=== PATIENT | female | born 1990 | race African-American/Black ===

== ENCOUNTER 2016-04-14 20:17 | Outpatient (CLI) | payer MEDICAID ==
[2016-04-14 21:01] LABS: APPEARANCE,URINE SLIGHTLY-CLOUDY; BILIRUBIN,URINE NEGATIVE (NEGATIVE); GLUCOSE, URINE NEGATIVE (NEGATIVE); KETONES,URINE TRACE mg/dL (NEGATIVE); LEUKOCYTE ESTERASE,URINE SMALL (NEGATIVE); NITRITE,URINE NEGATIVE (NEGATIVE); PROTEIN,URINE 30 mg/dL (NEGATIVE); URINE SPECIFIC GRAVITY 1.017; UROBILINOGEN,URINE NEGATIVE mg/dL (<2.0)
[2016-04-14] MEDS ORDERED: HYDROXYZINE PAMOATE 50 MG CAPSULE PO ONE (21:22)
[2016-04-14] MEDS ORDERED: RINGERS SOLUTION,LACTATED 1,000 ML IV PRN (21:23)
[2016-04-14] MEDS ORDERED: HYDROXYZINE PAMOATE 50 MG CAPSULE ONE (21:43)
[2016-04-14 21:52] LABS: URINE BARBITURATES SCREEN NEGATIVE; URINE METHADONE SCREEN NEGATIVE; URINE PHENCYCLIDINE SCREEN NEGATIVE
--- NOTE | 2016-04-14 22:42 | Non Stress Test Report ---
Non Stress Test Datetime Report Generated by CPN: 04/14/2016 22:41 DEMOGRAPHIC Test Number: 1 EGA NST: 35.6 INDICATION Indication for Study: Ordered by Provider MONITORING Monitor Explained: Monitor Explained; Test Explained; Patient Verbalized Understanding Time on Monitor: 04/14/2016 20:34 Time off Monitor: 04/14/2016 22:18 NST Duration: 104 NST INTERVENTIONS NST Interventions: PO Hydration; IV Fluids; Reposition Patient Physician Notified NST: Dr. Zayas BABY A: [id number] BABY A Movement : Present Contraction Frequency : Irregular FHR Baseline : 120 Accelerations : 15X15 Decelerations : None Variability : Moderate 6-25bpm NST Review: Meets Criteria for Reactive NST NST Review and Verified By : RODRIGUEZ Simental Results: Reactive NST REPORT Report Trigger: Send Report
[2016-04-15 00:19] LABS: CHLAM PCR NOT DETECTED (NOT DETECT)
--- NOTE | 2016-04-15 04:47 | L&D Admission Assessment ---
LD ADM ASMT Datetime Report Generated by CPN: 04/15/2016 04:45 PATIENT ASSESSMENT Assessment Type: Admission Assessment (04/14/2016 20:41:Susan Vitrano, RN) WEIGHT Weight (lb): 191 (04/14/2016 21:11:QS system process) Weight (kg): 86.8 (04/14/2016 21:11:QS system process) PAIN Pain Scale: 2 (04/14/2016 22:14:Susan Vitrano, RN) Pain Scale: 3 (04/14/2016 20:41:Susan Vitrano, RN) Pain Presence: Constant (04/14/2016 22:14:Susan Vitrano, RN) Pain Presence: Intermittent (04/14/2016 20:41:Susan Vitrano, RN) Pain Type: Pressure (04/14/2016 22:14:Susan Vitrano, RN) Pain Type: Contraction (04/14/2016 20:41:Susan Vitrano, RN) Pain Location: Back (04/14/2016 22:14:Susan Vitrano, RN) Pain Location: Back (04/14/2016 20:41:Susan Vitrano, RN) Pain Related to Contraction: Yes (04/14/2016 20:41:Susan Vitrano, RN) Pain Comments: Pt states contractions do not hurt, now is feeling only pressure in back (04/14/2016 22:14:Susan Vitrano, RN) CONTRACTIONS Frequency (min): None (04/14/2016 22:18:Susan Vitrano, RN) Frequency (min): Irritability (04/14/2016 22:00:Susan Vitrano, RN) Frequency (min): Irregular (04/14/2016 21:30:Susan Vitrano, RN) Frequency (min): Irregular (04/14/2016 21:00:Susan Vitrano, RN) Frequency (min): q 2-7 (04/14/2016 20:41:Susan Vitrano, RN) Duration (sec): 120-160 (04/14/2016 21:30:Susan Vitrano, RN) Duration (sec): 50-150 (04/14/2016 21:00:Susan Vitrano, RN) Quality: Mild (04/14/2016 22:00:Susan Vitrano, RN) Quality: Mild/Moderate (04/14/2016 21:30:Susan Vitrano, RN) Quality: Mild/Moderate (04/14/2016 21:00:Susan Vitrano, RN) Pattern: Normal: <= 5 Contractions in 10 Minutes (04/14/2016 22:00:Susan Vitrano, RN) Pattern: Normal: <= 5 Contractions in 10 Minutes (04/14/2016 21:30:Susan Vitrano, RN) Pattern: Normal: <= 5 Contractions in 10 Minutes (04/14/2016 21:00:Susan Vitrano, RN) Resting Tone [place]: Relaxed (04/14/2016 22:18:Susan Vitrano, RN) Resting Tone [place]: Relaxed (04/14/2016 22:00:Susan Vitrano, RN) Resting Tone [place]: Relaxed (04/14/2016 21:30:Susan Vitrano, RN) Resting Tone [place]: Relaxed (04/14/2016 21:00:Susan Vitrano, RN) Contraction Comments: Irritability (04/14/2016 22:00:Susan Vitrano, RN) VAGINAL EXAM Dilatation (cm): 1.0 (04/14/2016 20:36:Susan Vitrano, RN) Effacement (%): 50 (04/14/2016 20:36:Susan Vitrano, RN) Station: -3 (04/14/2016 20:36:Susan Vitrano, RN) Membranes Status: Intact (04/14/2016 20:41:Susan Vitrano, RN) NEURO Level of Consciousness: Fully Conscious (04/14/2016 20:41:Susan Vitrano, RN) DTR's/Clonus: DTRs 2+; No Clonus (04/14/2016 20:41:Susan Vitrano, RN) Headache: Denies (04/14/2016 20:41:Susan Vitrano, RN) Dizziness: No (04/14/2016 20:41:Susan Vitrano, RN) Blurred Vision: No (04/14/2016 20:41:Susan Vitrano, RN) Extremity Numbness/Tingling : None (04/14/2016 20:41:Susan Vitrano, RN) Extremity Movement: Full Range of Motion (04/14/2016 20:41:Susan Vitrano, RN) CARDIOVASCULAR Heart Rhythm: Regular (04/14/2016 20:41:Susan Devaughn RN) Nailbeds: [place] (04/14/2016 20:41:Susan Rehanaano, RN) Capillary Refill: Less than 3 Seconds (04/14/2016 20:41:Susan Devaughn RN) Lower Extremities Edema: None (04/14/2016 20:41:Susan Devaughn RN) Lower Extremities Edema Degree: None (04/14/2016 20:41:Susan Devaughn RN) Upper Extremities Edema: None (04/14/2016 20:41:Susan Devaughn RN) Upper Extremities Edema Degree: None (04/14/2016 20:41:Susan Rehanaano RN) Facial Edema: None (04/14/2016 20:41:Susan Rehanaano, RN) Kelin's Sign Left Leg: Negative (04/14/2016 20:41:Susan Rehanaano RN) Kelin's Sign Right Leg: Negative (04/14/2016 20:41:Susan Rehanaano, RN) DVT RISK ASSESSMENT DVT Risk Age: Age less than 41 years (04/14/2016 20:41:Susanjb aCntor RN) DVT Risk BMI: BMI<31 (04/14/2016 20:41:Susan Devaughn RN) DVT Risk Surgery: None Applicable (04/14/2016 20:41:Susan Cantor RN) DVT Risk Other: None Applicable (04/14/2016 20:41:Susanjb Cantor RN) DVT Risk Total: 0 (04/14/2016 20:41:QS system process) DVT Risk Text: Low Risk (<10%) No specific measures, early ambulation (04/14/2016 20:41:QS system process) RESPIRATORY Respiratory Effort: Unlabored; Regular Rhythm; Equal Expansion (04/14/2016 20:41:Susan Vitrano, RN) Breath Sounds, Left: Clear and Equal (04/14/2016 20:41:Susan Vitrano, RN) Breath Sounds, Right: Clear and Equal (04/14/2016 20:41:Susan Vitrano, RN) Cough Productivity: None (04/14/2016 20:41:Susan Vitrano, RN) GASTROINTESTINAL Nausea/Vomiting: Denies (04/14/2016 20:41:Susan Vitrano, RN) Bowel Sounds: Normoactive (04/14/2016 20:41:Susan Cantor RN) RUQ Epigastric Pain: Denies (04/14/2016 20:41:Susan Cantor RN) Hemorrhoids: None (04/14/2016 20:41:Susan Cantor RN) Diet Type: Regular diet (04/14/2016 20:41:Susan Cantor RN) Last Meal: 04/14/2016 16:00 (04/14/2016 20:41:Susan Cantor RN) GENITOURINARY Bladder: Nondistended (04/14/2016 20:41:Susan Cantor RN) Frequency of Urination: No (04/14/2016 20:41:Susan Cantor RN) Urination Burning: No (04/14/2016 20:41:Susan Cantor RN) CVA Tenderness: No (04/14/2016 20:41:Susan Cantor RN) Vaginal Bleeding: None (04/14/2016 20:41:Susan Cantor RN) Vaginal Discharge Amount: None (04/14/2016 20:41:Susan Cantor RN) Vaginal Discharge Color: N/A (04/14/2016 20:41:Susan Cantor RN) Vaginal Discharge Character: None (04/14/2016 20:41:Susan Cantor RN) INTEGUMENTARY Skin Color: Normal for Race (04/14/2016 20:41:Susan Cantor RN) Skin Temperature: Warm (04/14/2016 20:41:Susan Cantor RN) Skin Moisture: Dry (04/14/2016 20:41:Susan Cantor RN) Surgical Scars: N/A (04/14/2016 20:41:Susan Cantor RN) Body Piercings/Tattoos: Mult tattoos, tongue piercing, bilateral ear piercings (04/14/2016 20:41:Susan Cantor RN) TRAVIS SKIN ASSESSMENT Travis Scale Sensory Perception: No Impairment- Responds to verbal commands. Has no sensory deficit which would limit ability to feel or voice pain or discomfort (04/14/2016 20:41:Susan Cantor RN) Travis Scale Moisture: Rarely Moist- Skin is usually dry. Linen only requires changing at routine intervals (04/14/2016 20:41:Susan Cantor RN) Travis Scale Activity: Walks Frequently- Walks outside the room at least twice a day and inside room at least every 2 hours during the day. (04/14/2016 20:41:Susan Cantor RN) Travis Scale Mobility: No Limitations- Makes major and frequent changes in position without assistance (04/14/2016 20:41:Susan Cantor RN) Travis Scale Nutrition: Excellent- Eats most of every meal. Never refuses a meal. Usually eats a total of 4 or more servings of meat and dairy products. Occasionally eats between meals. Does not require supplementation (04/14/2016 20:41:Susan Cantor RN) Travis Scale Friction and Shear: No Apparent Problem- Moves in bed and in chair independently and has sufficient muscle strength to lift up completely during move. Maintains good position in bed or chair at all times (04/14/2016 20:41:Susan Cantor RN) Travis Scale Total: 23 (04/14/2016 20:41:QS system process) Travis Scale Risk: No Risk of Pressure Ulcer Noted at this Time (04/14/2016 20:41:QS system process) SUPPORT Family Support: Family supportive (04/14/2016 20:41:Susan Cantor RN) Emotional State: Calm/Relaxed (04/14/2016 20:41:Susan Cantor RN) SAFETY Call Greer Within Reach: Yes (04/14/2016 20:41:Susan Cantor RN) Side Rails Up: Yes (04/14/2016 20:41:Susan Cantor RN) Bed Wheels Locked: Yes (04/14/2016 20:41:Susan Cantor RN) Arm Bands Present: Yes (04/14/2016 20:41:Susan Cantor RN) Isolation: [place] (04/14/2016 20:41:Susan Cantor RN) FALL SCREEN Fall Risk History of Falling: (0) No (04/14/2016 20:41:Susan Cantor RN) Fall Risk Secondary Diagnosis: (0) No (04/14/2016 20:41:Susan Cantor RN) Fall Risk Ambulatory Aid: (0) None/Bedrest/Wheelchair/Nurse Assist (04/14/2016 20:41:Susan Cantor RN) Fall Risk IV Therapy: (0) No (04/14/2016 20:41:Susan Cantor RN) Fall Risk Gait: (0) Normal/Bedrest/Immobile (04/14/2016 20:41:Susan Cantor RN) Fall Risk Mental Status: (0) Oriented to Own Ability (04/14/2016 20:41:Susan Cantor RN) Fall Risk Score: 0 (04/14/2016 20:41:QS system process) Fall Risk Score Definition: No Risk: No action required (04/14/2016 20:41:QS system process) RECENT TRAVEL/INFECTIOUS DISEASE Recent Exp Communicable Disease: No (04/14/2016 20:41:Susan Cantor RN) Cough or Fever: No (04/14/2016 20:41:Susan Cantor RN) Foreign Travel Past 10 Days: No (04/14/2016 20:41:Susan Cantor RN) Open Wounds or Sores: No (04/14/2016 20:41:Susan Cantor RN) Prior Antibiotic Resistance Tx: No (04/14/2016 20:41:Susan Cantor RN) Cultures Obtained: Not Applicable (04/14/2016 20:41:Susan Cantor RN) Isolation Initiated: No (04/14/2016 20:41:Susan Cantor RN) Pt/Family Education: Not Applicable (04/14/2016 20:41:Susan Cantor RN) BABY A FHR Baseline Rate (bpm) Baby A: 120 (04/14/2016 22:18:Susan Cantor RN) FHR Baseline Rate (bpm) Baby A: 120 (04/14/2016 22:00:Susan Cantor RN) FHR Baseline Rate (bpm) Baby A: 120 (04/14/2016 21:30:Susan Vitrano, RN) FHR Baseline Rate (bpm) Baby A: 120 (04/14/2016 21:00:Susan Vitrano, RN) Variability Baby A: Moderate 6-25 bpm (04/14/2016 22:18:Susan Vitrano, RN) Variability Baby A: Moderate 6-25 bpm (04/14/2016 22:00:Susan Vitrano, RN) Variability Baby A: Moderate 6-25 bpm (04/14/2016 21:30:Susan Vitrano, RN) Variability Baby A: Moderate 6-25 bpm (04/14/2016 21:00:Susan Vitrano, RN) Accelerations Baby A: 15X15 (04/14/2016 22:18:Susan Vitrano, RN) Accelerations Baby A: 15X15 (04/14/2016 22:00:Susan Vitrano, RN) Accelerations Baby A: 15X15 (04/14/2016 21:30:Susan Vitrano, RN) Accelerations Baby A: 15X15 (04/14/2016 21:00:Susan Vitrano, RN) Decelerations Baby A: None (04/14/2016 22:18:Susan Vitrano, RN) Decelerations Baby A: None (04/14/2016 22:00:Susan Vitrano, RN) Decelerations Baby A: None (04/14/2016 21:30:Susan Vitrano, RN) Decelerations Baby A: None (04/14/2016 21:00:Susan Vitrano, RN) ADDITIONAL COMMENTS Assessment Flag: Admission Assessment (04/14/2016 20:41:QS system process)
--- NOTE | 2016-04-15 04:47 | L&D Discharge Summary ---
OB Discharge Summary Datetime Report Generated by CPN: 04/15/2016 04:45 DISCHARGE DIAGNOSIS Diagnosis/Symptoms: Dehydration Diagnoses/Symptoms Other: No PTL, Dehydration in Reviewed and signed Kick Counts, Dehydration, and PTL Care Notes. Pt encouraged to return for decreased FM, suspected SROM, regular contractions, bleeding like a period. Pt encouraged to keep f/u appointments. Pt verbalized understanding and denies needs. Gestation: 35.6 Number of Babies in Womb: 1 Parity: 2 DIET/ACTIVITY/RESTRICTIONS Diet: Regular Activity: Normal Activity TEACHING/INSTRUCTIONS/REFERRALS Instructions Given To: Patient, Support Instructions Understood: Patient Verbalized Understanding; Support Person Verbalized Understanding Referrals: None Educational Materials- Other: Kick counts, Dehydration, PTL DISCHARGE INFORMATION Discharged AMA: No Discharge Date/Time: 04/14/2016 22:33 Discharged To: Home Discharge Provider Name: Dr. Zayas Discharge Method: Wheelchair Condition: Stable FOLLOW UP INFORMATION Follow Up With: Health Department Follow Up On: As Scheduled Follow Up Phone Number: Health Department -
--- NOTE | 2016-04-15 04:47 | L&D Flow Sheet ---
LD Flowsheet Datetime Report Generated by CPN: 04/15/2016 04:45 Datetime: 04/14/2016 22:33 Patient Care Comments: Patient leaving unit in stable condition via wheelchair with support persons (Susan Vitrano, RN) Datetime: 04/14/2016 22:20 Teaching Instructional Method: Verbal; Written; Patient Instructed; Family/Support Person Instructed; Verbalized Understanding (Susan Cantor RN) Teaching Comments: Reviewed and signed Kick Counts, Dehydration, and PTL Care Notes. Pt encouraged to return for decreased FM, suspected SROM, regular contractions, bleeding like a period. Pt encouraged to keep f/u appointments. Pt verbalized understanding and denies needs. (Susanjb Cantor RN) Datetime: 04/14/2016 22:18 Uterine Activity Monitor Mode: External; Palpation (Susan Devaughn, RODRIGUEZ) Frequency (min): None (Susanjb Cantor RN) Resting Tone (Palpate): Relaxed (Susan RODRIGUEZ Cantor) Assessment A Monitor Mode: External US (Susan Vitrano, RN) FHR Baseline Rate : 120 (Susan Vitrano, RN) Variability: Moderate 6-25 bpm (Susan Vitrano, RN) Accelerations: 15X15 (Susan Vitrano, RN) Decelerations: None (Susan Vitrano, RN) Datetime: 04/14/2016 22:17 Patient Care Comments: IV d/c, bandaid applied, site WNL (Susan Vitrano, RN) Datetime: 04/14/2016 22:15 Communication Comments: Call to Dr. Zayas. Reviewed wet prep results, toco tracing, FHTs, pt denies contractions and reports back pressure. Orders to d/c pt home, diagnosis not in PTL, dehydration in . (Susan Cantor RN) Datetime: 04/14/2016 22:14 Monitor Interventions for UA: [place] Adjusted (Susan Cantor RN) Pain Pain Scale: 2 (Susan Cantor RN) Pain Presence: Constant (Susan Cantor RN) Pain Type: Pressure (Susan Cantor RN) Pain Location: Back (Susan Cantor RN) Pain Relief Measures: Comfort Measures (Annotations: Reviewed comfort measures) (Susan Cantor RN) Pain Coping: Pt talking, in no apparent distress (Susan Cantor RN) Pain Assessment Comments: Pt states contractions do not hurt, now is feeling only pressure in back (Susan Cantor RN) LaborFlag: Antepartum (QS system process) Datetime: 04/14/2016 22:03 Monitor Interventions for FHR: Ultrasound Adjusted (Susan Vitrano, RN) Datetime: 04/14/2016 22:00 Uterine Activity Monitor Mode: External; Palpation (Susan Vitrano, RN) Monitor Interventions for UA: [place] Adjusted (Susan Vitrano, RN) Frequency (min): Irritability (Susan Vitrano, RN) Quality: Mild (Susan Vitrano, RN) Duration Criteria: Less than Two 120 Second Contractions (Susan Vitrano, RN) Pattern: Normal: <= 5 Contractions in 10 Minutes (Susan Vitrano, RN) Resting Tone (Palpate): Relaxed (Susan Vitrano, RN) Contraction Comments: Irritability (Susan Vitrano, RN) Assessment A Monitor Mode: External US (Susan Vitrano, RN) FHR Baseline Rate : 120 (Susan Vitrano, RN) Variability: Moderate 6-25 bpm (Susan Vitrano, RN) Accelerations: 15X15 (Susan Vitrano, RN) Decelerations: None (Susan Vitrano, RN) Datetime: 04/14/2016 21:44 Monitor Interventions for FHR: Ultrasound Adjusted (Susan Vitrano, RN) Medications Medication Comments: Vistaril 50 mg PO (Susan Vitrano, RN) Datetime: 04/14/2016 21:36 Monitor Interventions for FHR: Ultrasound Adjusted (Susan Vitrano, RN) Patient Position/Activity: Left Tilt; High Fowlers (Susan Vitrano, RN) Datetime: 04/14/2016 21:35 Patient Care Comments: GBS and Wet prep collected (Susan Vitrano, RN) Datetime: 04/14/2016 21:30 Uterine Activity Monitor Mode: External (Susan Vitrano, RN) Frequency (min): Irregular (Susan Vitrano, RN) Quality: Mild/Moderate (Susan Vitrano, RN) Duration (sec): 120-160 (Susan Vitrano, RN) Duration Criteria: Less than Two 120 Second Contractions (Susan Vitrano, RN) Pattern: Normal: <= 5 Contractions in 10 Minutes (Susan Vitrano, RN) Resting Tone (Palpate): Relaxed (Susan Vitrano, RN) Assessment A Monitor Mode: External US (Susan Vitrano, RN) FHR Baseline Rate : 120 (Susan Vitrano, RN) Variability: Moderate 6-25 bpm (Susan Vitrano, RN) Accelerations: 15X15 (Susan Vitrano, RN) Decelerations: None (Susan Vitrano, RN) Patient Care IV/Blood Work: IV Started; IV Bolus Started; IV Infusing per Order (Susan Devaughn, RN) Patient Care Comments: 18 G R wrist, LR bolusing, site WNL (Susan Vitrano, RN) Datetime: 04/14/2016 21:29 Monitor Interventions for FHR: Ultrasound Adjusted (Susan Vitrano, RN) Teaching Instructional Method: Verbal; Patient Instructed; Family/Support Person Instructed; Verbalized Understanding (Susan RODRIGUEZ Cantor) Plan of Care: Plan of Care Discussed (Susan Vitrano, RN) Teaching Comments: Pt verbalizes understanding, questions answered (Susan Cantor RN) Datetime: 04/14/2016 21:19 Communication Communication: Provider Orders Received; Call/Page Placed to Provider (Susan Cantor RN) Communication Comments: Call to Dr. Zayas. Report given to include EGA 35.6, L1, pt complaint of contractions and to unit via EMS, pt VS, pt history, toco tracing, FHTs, VS, urine results. Orders received to collect wet prep, GBS, GC/Chlam and administer Vistaril 50 mg PO x1 now, 1 L LR IV x1 now. (Susan Cantor RN) Datetime: 04/14/2016 21:05 NBP Sys/Mari/Mean (mmHg): 110 (QS system process) : 77 (QS system process) : 90 (QS system process) Pulse: 102 (QS system process) Respirations: 16 (Susan Vitrano, RN) LaborFlag: Antepartum (QS system process) Datetime: 04/14/2016 21:00 Uterine Activity Monitor Mode: External; Palpation (Susan Vitrano, RN) Frequency (min): Irregular (Susan Vitrano, RN) Quality: Mild/Moderate (Susan Vitrano, RN) Duration (sec): 50-150 (Susan Vitrano, RN) Duration Criteria: Less than Two 120 Second Contractions (Susan Vitrano, RN) Pattern: Normal: <= 5 Contractions in 10 Minutes (Susan Vitrano, RN) Resting Tone (Palpate): Relaxed (Susan Vitrano, RN) Assessment A Monitor Mode: External US (Susan Vitrano, RN) FHR Baseline Rate : 120 (Susan Vitrano, RN) Variability: Moderate 6-25 bpm (Susan Vitrano, RN) Accelerations: 15X15 (Susan Vitrano, RN) Decelerations: None (Susan Vitrano, RN) Datetime: 04/14/2016 20:50 I/O Interventions: Popsicle (Susan Vitrano, RN) Datetime: 04/14/2016 20:41 Frequency (min): q 2-7 (Susan Vitrano, RN) Pain Pain Scale: 3 (Susan Vitrano, RN) Pain Presence: Intermittent (Susan Vitrano, RN) Pain Type: Contraction (Susan Vitrano, RN) Pain Location: Back (Susan Vitrano, RN) Pain Relief Measures: Comfort Measures (Susan Vitrano, RN) Pain Coping: Breathing Through Contractions (Susan Vitrano, RN) Membrane Status: Intact (Susan Vitrano, RN) Vaginal Bleeding: None (Susan Vitrano, RN) Maternal Assessment Level of Consciousness: Fully Conscious (Susan Vitrano, RN) DTR's/Clonus: DTRs 2+; No Clonus (Susan Vitrano, RN) Headache: Denies (Susan Vitrano, RN) Breath Sounds, Left: Clear and Equal (Susan Vitrano, RN) Breath Sounds, Right: Clear and Equal (Susan Vitrano, RN) Nausea/Vomiting: Denies (Susan Vitrano, RN) RUQ Epigastric Pain: Denies (Susan Devaughn, RN) LaborFlag: Antepartum (QS system process) Datetime: 04/14/2016 20:36 Vital Signs Stage of : Antepartum (Susan Devaughn, RN) Vaginal Exam Dilatation (cm): 1.0 (Susan Cantor RN) Effacement (%): 50 (Susan Cantor RN) Station: -3 (Susan Cantor RN) Exam by: Massimo Cantor RN (Susan Vitrmaine, RODRIGUEZ) Vaginal Bleeding: None (Susan Cantor RN) Cervix, Consistency: Moderate (Susan RODRIGUEZ Cantor) Cervix, Position: Midposition (Susan RODRIGUEZ Cantor) Datetime: 04/14/2016 20:35 NBP Sys/Mari/Mean (mmHg): 108 (QS system process) : 69 (QS system process) : 83 (QS system process) Pulse: 87 (QS system process) Datetime: 04/14/2016 20:33 Patient Position/Activity: Left Tilt; Semi-Fowlers (Susan Cantor, RODRIGUEZ) I/O Interventions: Clear Liquids Given (Susan Cantor RN) Teaching Instructional Method: Verbal; Patient Instructed; Family/Support Person Instructed; Verbalized Understanding (Susan Cantor RN) Plan of Care: Plan of Care Discussed (Susan Cantor RN) Unit Routine: [place] to Room; Call [place]er; Bed; Unit Personnel; Monitoring; Safety/Fall Risk Prevention; Bathroom Privileges (Susan Cantor RN)
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
--- NOTE | 2016-04-15 04:47 | Antepartum Discharge Summary ---
Antepartum DC Datetime Report Generated by CPN: 04/15/2016 04:45 DIET/ACTIVITY/RESTRICTIONS Diet: Regular (04/14/2016 22:33:Susan Vitrano, RN) Activity: Normal Activity (04/14/2016 22:33:Susan Vitrano, RN) TEACHING/INSTRUCTIONS/REFERRALS Instructions Given To: Patient, Support (04/14/2016 22:33:Susan Vitrano, RN) Instructions Understood: Patient Verbalized Understanding; Support Person Verbalized Understanding (04/14/2016 22:33:Susan Cantor RN) Referrals: None (04/14/2016 22:33:Susan Cantor RN) Educational Materials- Other: Kick counts, Dehydration, PTL (04/14/2016 22:33:Susan Cantor RN) DISCHARGE INFORMATION Discharged AMA: No (04/14/2016 22:33:Susan Cantor RN) Discharge Date/Time: 04/14/2016 22:33 (04/14/2016 22:33:Susan Cantor RN) Discharged To: Home (04/14/2016 22:33:Susan Cantor RN) Discharge Provider Name: Dr. Zayas (04/14/2016 22:33:Susan Cantor RN) Discharge Method: Wheelchair (04/14/2016 22:33:Susan Cantor RN) Condition: Stable (04/14/2016 22:33:Susan Cantor RN) FOLLOW UP INFORMATION Follow Up With: Health Department (04/14/2016 22:33:Susan Cantor RN) Follow Up On: As Scheduled (04/14/2016 22:33:Susan Cantor RN) Follow Up Phone Number: [facility] Department - (04/14/2016 22:33:Susan Cantor RN)
--- NOTE | 2016-04-15 04:47 | L&D Current Admission ---
Current Admit Datetime Report Generated by CPN: 04/15/2016 04:45 ADMISSION INFORMATION Chief Complaint: Contractions (04/14/2016 20:41:Susan Cantor, RODRIGUEZ)
== END 2016-04-14 22:33 | disposition home or self-care (01) ==
LOC: LC 20:17
PROVIDERS: ATTEND Obstetrics & Gynecology
PROC: 4A1HXCZ Monitoring of Products of Conception, Cardiac Rate, External Approach (ICD-10-PCS; principal; 2016-04-14)
DX: Z34.93 Encounter for supervision of normal pregnancy, unspecified, third trimester (principal); Z3A.35 35 weeks gestation of pregnancy
CPT/HCPCS: 59025; 87210; 87077; 81001; 87081; 80307; 87491; 87591; G0480 ×2; J3490

== ENCOUNTER 2016-05-11 05:19 | Outpatient (CLI) | payer MEDICAID ==
[2016-05-11 05:48] LABS: APPEARANCE,URINE CLEAR; BILIRUBIN,URINE NEGATIVE (NEGATIVE); GLUCOSE, URINE NEGATIVE (NEGATIVE); KETONES,URINE NEGATIVE (NEGATIVE); LEUKOCYTE ESTERASE,URINE LARGE (NEGATIVE); NITRITE,URINE NEGATIVE (NEGATIVE); PROTEIN,URINE NEGATIVE (NEGATIVE); URINE SPECIFIC GRAVITY 1.006; UROBILINOGEN,URINE NEGATIVE mg/dL (<2.0)
[2016-05-11 06:05] LABS: URINE BARBITURATES SCREEN NEGATIVE; URINE METHADONE SCREEN NEGATIVE; URINE OPIATES LOW NEGATIVE; URINE PHENCYCLIDINE SCREEN NEGATIVE
--- NOTE | 2016-05-11 08:02 | L&D Flow Sheet ---
LD Flowsheet Datetime Report Generated by CPN: 05/11/2016 08:00 Datetime: 05/11/2016 07:33 Communication Communication Comments: Pt upset she is being discharged. Explained to pt that without cervical change, she is not in labor and we cannot admit her. Informed pt that her baby looked great on the monitor with 15x15 accels and moderate variablility. Informed pt that this shows infant's neurological system is working well and she is dealing well with the contractions pt is having. Informed pt she may be in early labor that if so it can take awhile to start changing her cervix. Recommended that she come back if her water breaks, contractions become stronger and closer together, infant not moving well/normally, or starts bleeding like a menses. Advised pt that we would see her any time she felt it was needed but are unable to admit her at this time as her cervix did not show any cervical change at all. Pt states "this is what happened with my son who and I am not comfortable with this". States she has never heard of this before and with her first son she was admitting when she was 3cm because that was considered labor in [place]. Informed her that according to ACOG we will admit at 6cm or if cervical change is occurring (labor). Pt visible upset. Offered to have physician come to bedside to discuss and pt states that "she's just gonna say the same thing so I'm gonna have to just go to [place] or somewhere they will help me". Advised pt she is always welcome to go anywhere she would like and that we would be happy to release her records if she does end up going somewhere else but that we do not have justification to admit her at this time. Pt verbalized understanding and declined speaking with Dr. Ohara. Pt to BR to change her clothes. (Dina Riojas RN) Datetime: 05/11/2016 07:23 Uterine Activity Monitor Mode: External (Dina Lattibeaudeir, RN) Frequency (min): x3 (Dina Lattibeaudeir, RN) Quality: Mild/Moderate (Dina Lattibeaudeir, RN) Duration (sec): 40-100 (Dina Lattibeaudeir, RN) Resting Tone (Palpate): Relaxed (Dina Lattibeaudeir, RN) Contraction Comments: monitors removed for discharge (Dina Lattibeaudeir, RN) Assessment A Monitor Mode: External US (Dina Lattibeaudeir, RN) FHR Baseline Rate : 125 (Dina Lattibeaudeir, RN) Variability: Moderate 6-25 bpm (Dina Lattibeaudeir, RN) Accelerations: 15X15 (Dina Lattibeaudeir, RN) Datetime: 05/11/2016 07:21 Communication Communication Comments: Informed Dr. Neilsen of SVE's, Urine results, and pt complaint. Received orders to discharge pt home. May have Vistaril if she wants it. (Dina Lattibeaudeir, RN) Datetime: 05/11/2016 07:13 Vaginal Exam Dilatation (cm): 3.5 (Dina Lattibeaudeir, RN) Effacement (%): 70 (Dina Lattibeaudeir, RN) Station: -1 (Dina Ragsdaletibseleneir, RN) Exam by: SAbel Riojas, RN (Dina Lattibseleneir, RN) Patient Care I/O Interventions: Up to BR (Dina Lattibeaudeir, RN) Datetime: 05/11/2016 07:10 Vital Signs NBP Sys/Mari/Mean (mmHg): 113 (QS system process) : 80 (QS system process) : 89 (QS system process) Pulse: 98 (QS system process) LaborFlag: Antepartum (QS system process) Datetime: 05/11/2016 07:00 Uterine Activity Monitor Mode: External (Dina Lattibeaudeir, RN) Frequency (min): 2.5-9 (Dina Lattibeaudeir, RN) Quality: Mild/Moderate (Dina Lattibeaudeir, RN) Duration (sec): 60-100 (Dina Lattibeaudeir, RN) Resting Tone (Palpate): Relaxed (Dina Lattibeaudeir, RN) Assessment A Monitor Mode: External US (Dina Lattibeaudeir, RN) FHR Baseline Rate : 125 (Dina Lattibeaudeir, RN) Variability: Moderate 6-25 bpm (Dina Lattibeaudeir, RN) Datetime: 05/11/2016 06:42 Monitor Interventions for FHR: Ultrasound Adjusted (Dina Lattibeaudeir, RN) Datetime: 05/11/2016 06:39 Vital Signs NBP Sys/Mari/Mean (mmHg): 104 (QS system process) : 62 (QS system process) : 78 (QS system process) Pulse: 95 (QS system process) LaborFlag: Antepartum (QS system process) Datetime: 05/11/2016 06:30 Uterine Activity Monitor Mode: External (Dina Lattibeaudeir, RN) Frequency (min): 3-5 (Dina Lattibeaudeir, RN) Quality: Mild/Moderate (Dina Lattibeaudeir, RN) Duration (sec): 60-90 (Dina Lattibeaudeir, RN) Resting Tone (Palpate): Relaxed (Dina Lattibeaudeir, RN) Assessment A Monitor Mode: External US (Dina Lattibeaudeir, RN) FHR Baseline Rate : 125 (Dina Lattibeaudeir, RN) Variability: Moderate 6-25 bpm (Dina Lattibeaudeir, RN) Accelerations: 15X15 (Dina Lattibeaudeir, RN) Datetime: 05/11/2016 06:09 Vital Signs NBP Sys/Mari/Mean (mmHg): 128 (QS system process) : 78 (QS system process) : 95 (QS system process) Pulse: 96 (QS system process) LaborFlag: Antepartum (QS system process) Datetime: 05/11/2016 06:00 Uterine Activity Monitor Mode: External (Dina Lattibeaudeir, RN) Frequency (min): 2-5 (Dina Lattibeaudeir, RN) Quality: Mild/Moderate (Dina Lattibeaudeir, RN) Duration (sec): 80-100 (Dina Lattibeaudeir, RN) Resting Tone (Palpate): Relaxed (Dina Lattibeaudeir, RN) Assessment A Monitor Mode: External US (Dina Lattibeaudeir, RN) FHR Baseline Rate : 125 (Dina Lattibeaudeir, RN) Variability: Moderate 6-25 bpm (Dina Lattibeaudeir, RN) Accelerations: 10X10 (Dina Lattibeaudeir, RN) Datetime: 05/11/2016 05:54 Patient Care I/O Interventions: Up to BR (Dina Lattibeaudeir, RN) Datetime: 05/11/2016 05:42 Vaginal Exam Dilatation (cm): 3.5 (Dina Riojas, RN) Effacement (%): 70 (Dina Riojas, RODRIGUEZ) Station: -1 (Dina Riojas, RODRIGUEZ) Exam by: Valeria Riojas RN (Dina Riojas, RN) Vaginal Bleeding: None (Dina Riojas, RN) Cervix, Consistency: Soft (Dina Riojas, RODRIGUEZ) Datetime: 05/11/2016 05:39 Vital Signs NBP Sys/Mari/Mean (mmHg): 123 (QS system process) : 86 (QS system process) : 101 (QS system process) Pulse: 86 (QS system process) Frequency (min): unsure (Dina Lattibeaudeir, RN) Pain Pain Scale: 3 (Dina Lattibeaudeir, RN) Pain Presence: Intermittent (Dina Lattibeaudeir, RN) Pain Type: Contraction (Dina Lattibeaudeir, RN) Pain Location: Abdomen (Dina Lattibeaudeir, RN) Pain Coping: Breathing Through Contractions (Dina Lattibeaudeir, RN) Membrane Status: Intact (Dina Lattibeaudeir, RN) Amniotic Fluid Amount: None (Dina Lattibeaudeir, RN) Vaginal Bleeding: None (Dina Lattibeaudeir, RN) Maternal Assessment Level of Consciousness: Fully Conscious (Dina Lattibeaudeir, RN) Headache: Denies (Dina Lattibeaudeir, RN) Breath Sounds, Left: Clear and Equal (Dina Lattibeaudeir, RN) Breath Sounds, Right: Clear and Equal (Dina Lattibeaudeir, RN) Nausea/Vomiting: Denies (Dina Lattibeaudeir, RN) RUQ Epigastric Pain: Denies (Dina Lattibeaudeir, RN) LaborFlag: Antepartum (QS system process) Datetime: 05/11/2016 05:37 Comments: monitors applied (Dina Riojas, RODRIGUEZ)
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
--- NOTE | 2016-05-11 10:46 | L&D Current Admission ---
Current Admit Datetime Report Generated by CPN: 05/11/2016 10:45 ADMISSION INFORMATION Chief Complaint: Contractions (05/11/2016 05:39:Dina Riojas RN) Chief Complaint: Contractions (04/14/2016 20:41:Susan Cantor RN)
--- NOTE | 2016-05-11 10:46 | L&D Admission Assessment ---
LD ADM ASMT Datetime Report Generated by CPN: 05/11/2016 10:45 PATIENT ASSESSMENT Assessment Type: Triage (05/11/2016 05:39:Dina Lattibeaudeir, RN) WEIGHT Weight (lb): 194 (05/11/2016 07:48:QS system process) Weight (lb): 194 (05/11/2016 07:22:QS system process) Weight (kg): 88.2 (05/11/2016 07:48:QS system process) Weight (kg): 88.2 (05/11/2016 07:22:QS system process) BMI: 33.3 (05/11/2016 07:48:QS system process) BMI: 33.3 (05/11/2016 07:22:QS system process) PAIN Pain Scale: 3 (05/11/2016 05:39:Dina Lattibeaudeir, RN) Pain Presence: Intermittent (05/11/2016 05:39:Dina Lattibeaudeir, RN) Pain Type: Contraction (05/11/2016 05:39:Dina Lattibeaudeir, RN) Pain Location: Abdomen (05/11/2016 05:39:Dina Lattibeaudeir, RN) Pain Related to Contraction: Yes (05/11/2016 05:39:Dina Lattibeaudeir, RN) CONTRACTIONS Frequency (min): x3 (05/11/2016 07:23:Dina Lattibeaudeir, RN) Frequency (min): 2.5-9 (05/11/2016 07:00:Dina Lattibeaudeir, RN) Frequency (min): 3-5 (05/11/2016 06:30:Dina Lattibeaudeir, RN) Frequency (min): 2-5 (05/11/2016 06:00:Dina Lattibeaudeir, RN) Frequency (min): unsure (05/11/2016 05:39:Dina Lattibeaudeir, RN) Duration (sec): 40-100 (05/11/2016 07:23:Dina Lattibeaudeir, RN) Duration (sec): 60-100 (05/11/2016 07:00:Dina Lattibeaudeir, RN) Duration (sec): 60-90 (05/11/2016 06:30:Dina Lattibeaudeir, RN) Duration (sec): 80-100 (05/11/2016 06:00:Dina Lattibeaudeir, RN) Quality: Mild/Moderate (05/11/2016 07:23:Dina Lattibeaudeir, RN) Quality: Mild/Moderate (05/11/2016 07:00:Dina Lattibeaudeir, RN) Quality: Mild/Moderate (05/11/2016 06:30:Dina Lattibeaudeir, RN) Quality: Mild/Moderate (05/11/2016 06:00:Dina Lattibeaudeir, RN) Resting Tone [place]: Relaxed (05/11/2016 07:23:Dina Lattibeaudeir, RN) Resting Tone [place]: Relaxed (05/11/2016 07:00:Dina Lattibeaudeir, RN) Resting Tone [place]: Relaxed (05/11/2016 06:30:Dina Lattibeaudeir, RN) Resting Tone [place]: Relaxed (05/11/2016 06:00:Dina Lattibeaudeir, RN) Contraction Comments: monitors removed for discharge (05/11/2016 07:23:Dina Lattibeaudeir, RN) VAGINAL EXAM Dilatation (cm): 3.5 (05/11/2016 07:13:Dina Riojas RN) Dilatation (cm): 3.5 (05/11/2016 05:42:Dina Riojas RN) Effacement (%): 70 (05/11/2016 07:13:Dina Riojas RN) Effacement (%): 70 (05/11/2016 05:42:Dina Riojas RN) Station: -1 (05/11/2016 07:13:Dina Riojas RN) Station: -1 (05/11/2016 05:42:Dina Riojas RN) Membranes Status: Intact (05/11/2016 05:39:Dina Riojas RN) Amniotic Fluid Amount: None (05/11/2016 05:39:Dina Riojas RN) NEURO Level of Consciousness: Fully Conscious (05/11/2016 05:39:Dina Riojas RN) Headache: Denies (05/11/2016 05:39:Dina Riojas RN) Dizziness: No (05/11/2016 05:39:Dina Riojas RN) Blurred Vision: No (05/11/2016 05:39:Dina Riojas RN) Extremity Numbness/Tingling : None (05/11/2016 05:39:Dina Lattibeaudeir, RN) Extremity Movement: Full Range of Motion (05/11/2016 05:39:Dina Lattibeaudeir, RN) CARDIOVASCULAR Nailbeds: [place] (05/11/2016 05:39:Dina Lattibeajose franciscoir, RN) Capillary Refill: Less than 3 Seconds (05/11/2016 05:39:Dina Lattibeaosvaldo, RN) Lower Extremities Edema: None (05/11/2016 05:39:Dina Lattibeaudeir, RN) Lower Extremities Edema Degree: None (05/11/2016 05:39:Dina Lattibeajose franciscoir, RN) Upper Extremities Edema: None (05/11/2016 05:39:Dina Lattibeajose franciscoir, RN) Upper Extremities Edema Degree: None (05/11/2016 05:39:Dina Lattibeajose franciscoir, RN) Facial Edema: None (05/11/2016 05:39:Dina Lattibeaudeir, RN) RESPIRATORY Respiratory Effort: Unlabored; Regular Rhythm; Equal Expansion (05/11/2016 05:39:Dina Riojas, RN) Breath Sounds, Left: Clear and Equal (05/11/2016 05:39:Dina Riojas, RN) Breath Sounds, Right: Clear and Equal (05/11/2016 05:39:Dina Riojas, RN) Cough Productivity: None (05/11/2016 05:39:Dina Riojas, RODRIGUEZ) GASTROINTESTINAL Nausea/Vomiting: Denies (05/11/2016 05:39:Dina Riojas, RN) RUQ Epigastric Pain: Denies (05/11/2016 05:39:Dina Diazir, RN) GENITOURINARY Bladder: Nondistended (05/11/2016 05:39:Dina Riojas RN) Frequency of Urination: No (05/11/2016 05:39:Dina Riojas RN) Urination Burning: No (05/11/2016 05:39:Dina Riojas RN) CVA Tenderness: No (05/11/2016 05:39:Dina Lattibeaudeir, RN) Vaginal Bleeding: None (05/11/2016 05:39:Dina Lattibeaudeir, RN) Vaginal Discharge Amount: None (05/11/2016 05:39:Dina Lattibeaudeir, RN) Vaginal Discharge Color: N/A (05/11/2016 05:39:Dina Lattibeaudeir, RN) Vaginal Discharge Character: None (05/11/2016 05:39:Dina Lattibeaudeir, RN) INTEGUMENTARY Skin Color: Normal for Race (05/11/2016 05:39:Dina Lattibeaudeir, RN) Skin Temperature: Warm (05/11/2016 05:39:Dina Lattibeaudeir, RN) Skin Moisture: Dry (05/11/2016 05:39:Dina Lattibeaudeir, RN) TRAVIS SKIN ASSESSMENT Travis Scale Sensory Perception: No Impairment- Responds to verbal commands. Has no sensory deficit which would limit ability to feel or voice pain or discomfort (05/11/2016 05:39:Dina Riojas RN) Travis Scale Moisture: Rarely Moist- Skin is usually dry. Linen only requires changing at routine intervals (05/11/2016 05:39:Dina Riojas RN) Travis Scale Activity: Walks Frequently- Walks outside the room at least twice a day and inside room at least every 2 hours during the day. (05/11/2016 05:39:Dina Riojas RN) Travis Scale Mobility: No Limitations- Makes major and frequent changes in position without assistance (05/11/2016 05:39:Dina Riojas RN) Travis Scale Nutrition: Adequate- Eats over half of most meals. Eats a total of 4 servings of protein (meat, dairy products) each day. Occasionally will refuse a meal but will usually take a supplement if offered OR is on a tube feeding or TPN regimen which probably meets most of nutritional needs (05/11/2016 05:39:Dina Riojas RN) Travis Scale Friction and Shear: No Apparent Problem- Moves in bed and in chair independently and has sufficient muscle strength to lift up completely during move. Maintains good position in bed or chair at all times (05/11/2016 05:39:Dina Riojas RN) Travis Scale Total: 22 (05/11/2016 05:39:QS system process) Travis Scale Risk: No Risk of Pressure Ulcer Noted at this Time (05/11/2016 05:39:QS system process) BABY A FHR Baseline Rate (bpm) Baby A: 125 (05/11/2016 07:23:Dina Riojas RN) FHR Baseline Rate (bpm) Baby A: 125 (05/11/2016 07:00:Dina Riojas RN) FHR Baseline Rate (bpm) Baby A: 125 (05/11/2016 06:30:Dina Riojas RN) FHR Baseline Rate (bpm) Baby A: 125 (05/11/2016 06:00:Dina Riojas RN) Variability Baby A: Moderate 6-25 bpm (05/11/2016 07:23:Dina Riojas RN) Variability Baby A: Moderate 6-25 bpm (05/11/2016 07:00:Dina Riojas RN) Variability Baby A: Moderate 6-25 bpm (05/11/2016 06:30:Dina Riojas RN) Variability Baby A: Moderate 6-25 bpm (05/11/2016 06:00:Dina Riojas RN) Accelerations Baby A: 15X15 (05/11/2016 07:23:Dina Riojas RN) Accelerations Baby A: 15X15 (05/11/2016 06:30:Dina Riojas RN) Accelerations Baby A: 10X10 (05/11/2016 06:00:Dina Riojas RN)
--- NOTE | 2016-05-11 10:46 | L&D Discharge Summary ---
OB Discharge Summary Datetime Report Generated by CPN: 05/11/2016 10:45 DISCHARGE DIAGNOSIS Diagnosis/Symptoms: Dehydration Diagnoses/Symptoms Other: No PTL, Dehydration in Reviewed and signed Kick Counts, Dehydration, and PTL Care Notes. Pt encouraged to return for decreased FM, suspected SROM, regular contractions, bleeding like a period. Pt encouraged to keep f/u appointments. Pt verbalized understanding and denies needs. Gestation: 39.4 Number of Babies in Womb: 1 Parity: 2 DIET/ACTIVITY/RESTRICTIONS Diet: Regular Activity: Normal Activity TEACHING/INSTRUCTIONS/REFERRALS Instructions Given To: Patient, Support Instructions Understood: Patient Verbalized Understanding; Support Person Verbalized Understanding Referrals: None Educational Materials- Other: Kick counts, Dehydration, PTL DISCHARGE INFORMATION Discharged AMA: No Discharge Date/Time: 04/14/2016 22:33 Discharged To: Home Discharge Provider Name: Dr. Zayas Discharge Method: Wheelchair Condition: Stable FOLLOW UP INFORMATION Follow Up With: Health Department Follow Up On: As Scheduled Follow Up Phone Number: Health Department -
== END 2016-05-11 07:48 | disposition home or self-care (01) ==
LOC: LC 05:19
PROVIDERS: ATTEND Student in an Organized Health Care Education/Training Program
PROC: 4A1HXCZ Monitoring of Products of Conception, Cardiac Rate, External Approach (ICD-10-PCS; principal; 2016-05-11)
DX: O47.1 False labor at or after 37 completed weeks of gestation (principal); Z3A.39 39 weeks gestation of pregnancy
CPT/HCPCS: 80307; 81005

== ENCOUNTER 2016-05-17 06:09 | Inpatient (IN) | payer MEDICAID ==
[2016-05-17] MEDS ORDERED: RINGERS SOLUTION,LACTATED 1,000 ML IV PRN (06:25)
[2016-05-17] MEDS ORDERED: RINGERS SOLUTION,LACTATED 300 ML IV ONE (06:25)
[2016-05-17] MEDS ORDERED: OXYTOCIN/NORMAL SALINE 1,000 ML IV PRN ×2 (06:25→10:18)
[2016-05-17] MEDS ORDERED: PENICILLIN G POTASSIUM 5,000,000 UNIT in DEXTROSE 5%-WATER 100 ML IV ONE (06:27)
[2016-05-17] MEDS ORDERED: PENICILLIN G-K 5 MILLION UNIT VIAL ONE (06:40)
[2016-05-17] MEDS ORDERED: PENICILLIN G-K 5 MILLION UNIT VIAL IV PRN ×2 (06:42→06:43)
[2016-05-17 06:50] LABS: BILIRUBIN,URINE NEGATIVE (NEGATIVE); GLUCOSE, URINE NEGATIVE (NEGATIVE); KETONES,URINE NEGATIVE (NEGATIVE); LEUKOCYTE ESTERASE,URINE LARGE (NEGATIVE); NITRITE,URINE NEGATIVE (NEGATIVE); PROTEIN,URINE NEGATIVE (NEGATIVE); UROBILINOGEN,URINE NEGATIVE mg/dL (<2.0)
[2016-05-17 06:53] LABS: APPEARANCE,URINE CLEAR
[2016-05-17 06:57] LABS: URINE BARBITURATES SCREEN NEGATIVE; URINE METHADONE SCREEN NEGATIVE; URINE OPIATES LOW NEGATIVE; URINE PHENCYCLIDINE SCREEN NEGATIVE
[2016-05-17 07:06] LABS: ABSOLUTE BASOPHILS # (AUTO) 0.1 10^3/uL (0.0-0.2); ABSOLUTE EOSINOPHILS # (AUTO) 0.1 10^3/uL (0.0-0.6); ABSOLUTE LYMPHOCYTES (AUTO) 3.6 10^3/uL (0.5-4.7); ABSOLUTE MONOCYTES (AUTO) 0.6 10^3/uL (0.1-1.4); ABSOLUTE NEUT (AUTO) 7.3 10^3/uL (1.7-8.2); BASOPHILS % (AUTO) 0.7 % (0-2); EOSINOPHILS % (AUTO) 1.2 % (0-6); HEMATOCRIT 31.6 % (36.0-47.0); HEMOGLOBIN 10.5 g/dL (12.0-15.5); HGB HCT DIFFERENCE -0.1; LYMPHOCYTES % (AUTO) 30.9 % (13-45); MEAN CORPUSCULAR HEMOGLOBIN 23.8 pg (27.0-33.4); MEAN CORPUSCULAR HGB CONC 33.2 g/dL (32.0-36.0); MEAN CORPUSCULAR VOLUME 72 fl (80-97); MONOCYTES % (AUTO) 5.2 % (3-13); RED BLOOD COUNT 4.41 10^6/uL (3.72-5.28); RED CELL DISTRIBUTION WIDTH 15.7 % (11.5-14.0); WHITE BLOOD COUNT 11.8 10^3/uL (4.0-10.5)
[2016-05-17] MEDS ORDERED: OXYTOCIN/NORMAL SALINE 20 UNIT/1,000 ML RTUINJ ONE ×2 (07:24→10:58)
--- NOTE | 2016-05-17 08:00 | L&D Flow Sheet ---
LD Flowsheet Datetime Report Generated by CPN: 05/17/2016 08:00 Datetime: 05/17/2016 07:50 NBP Sys/Mari/Mean (mmHg): 121 (QS system process) : 81 (QS system process) : 96 (QS system process) Pulse: 109 (QS system process) LaborFlag: Antepartum (QS system process) Datetime: 05/17/2016 07:45 Monitor Interventions for FHR: Ultrasound Adjusted (Magui Marlatt, RN) Datetime: 05/17/2016 07:41 Medications Pitocin (milliunit): Pitocin Started (milliunits) @ 2 (Magui Cote, RN) Datetime: 05/17/2016 07:21 NBP Sys/Mari/Mean (mmHg): 123 (QS system process) : 85 (QS system process) : 99 (QS system process) Pulse: 103 (QS system process) LaborFlag: Antepartum (QS system process) Datetime: 05/17/2016 07:20 Maternal Assessment Level of Consciousness: Fully Conscious (Magui Marlatt, RN) DTR's/Clonus: DTRs 2+; No Clonus (Magui Marlatt, RN) Headache: Denies (Magui Marlatt, RN) Breath Sounds, Left: Clear and Equal (Magui Marlatt, RN) Breath Sounds, Right: Clear and Equal (Magui Marlatt, RN) Nausea/Vomiting: Denies (Magui Marlatt, RN) RUQ Epigastric Pain: Denies (Magui Marlatt, RN) Datetime: 05/17/2016 07:18 Vaginal Exam Dilatation (cm): 3.5 (Magui Marlatt, RN) Effacement (%): 50 (Magui Marlatt, RN) Station: -3 (Magui Marlatt, RN) Exam by: Dr. Zavala (Magui Marlatt, RN) Cervix, Position: Midposition (Magui Marlatt, RN) Datetime: 05/17/2016 07:13 Vital Signs Stage of : Antepartum (Crystal Jaz, RN) Strip Reviewed by: Freddie Sebastian RN (Crystal Chester, RN) Communication Communication: Report Given to @ Adri CoteRODRIGUEZ _ Abdelrahman SchmidtWendyRODRIGUEZ curran. (Crystal Jaz, RN) Notification Reason: Status Update; Status; Labor Status; Membrane Status; Uterine Activity; Pain (Crystal Chester, RN) Datetime: 05/17/2016 06:55 Uterine Activity Monitor Mode: External; Palpation (Crystal Chester, RN) Frequency (min): 8 (Crystal Jaz, RN) Quality: Mild/Moderate (Crystal Chester, RN) Duration (sec): 90-100 (Crystal Chester, RN) Resting Tone (Palpate): Relaxed (Crystal Jaz, RN) Assessment A Monitor Mode: External US (Crystal Jaz, RN) FHR Baseline Rate : 125 (Crystal Chester, RN) Variability: Moderate 6-25 bpm (Crystal Jaz, RN) Accelerations: 15X15 (Crystal Chester, RN) Decelerations: None (Crystal Chester, RN) Datetime: 05/17/2016 06:47 Antibiotics: Penicillin IV (Units) @ 5,000,000 (Crystal Chester, RN) Patient Care IV/Blood Work: Labs Drawn (Crystal Chester, RN) I/O Interventions: Popsicle; Clear Liquids Given (Crystal Jaz, RN) Datetime: 05/17/2016 06:44 Uterine Activity Monitor Mode: External; Palpation (Crystal Jaz, RN) Frequency (min): 6 (Crystal Jaz, RN) Quality: Mild/Moderate (Crystal Jaz, RN) Duration (sec): 70-100 (Crystal Jaz, RN) Duration Criteria: Less than Two 120 Second Contractions (Crystal Chester, RN) Resting Tone (Palpate): Relaxed (Crystal Jaz, RN) Assessment A Monitor Mode: External US (Crystal Jaz, RN) FHR Baseline Rate : 130 (Crystal Jaz, RN) Variability: Moderate 6-25 bpm (Crystal Chester, RN) Accelerations: None (Crystal Jaz, RN) Decelerations: None (Crystal Chester, RN) Patient Position/Activity: Left Lateral; High Fowlers (Crystal Jaz, RN) Datetime: 05/17/2016 06:40 Patient Care IV/Blood Work: IV Started; IV Bolus Started (Crystal Jza, RN) Patient Care Comments: 18G R Posterior FA (Crystal Jaz, RN) Datetime: 05/17/2016 06:34 Procedures: Consents Signed (Crystal Jaz, RN) Datetime: 05/17/2016 06:29 NBP Sys/Mari/Mean (mmHg): 118 (QS system process) : 76 (QS system process) : 91 (QS system process) Pulse: 118 (QS system process) Temperature (F): 99.8 (Crystal Jaz, RN) Temperature (C): 37.7 (QS system process) LaborFlag: Antepartum (QS system process) Datetime: 05/17/2016 06:19 Membrane Status: Intact (Crystal Chester, RN) Vaginal Bleeding: None (Crystal Jaz, RN) Maternal Assessment Level of Consciousness: Fully Conscious (Crystal Jaz, RN) Headache: Denies (Crystal Chester, RN) Breath Sounds, Left: Clear and Equal (Crystal Chester, RN) Breath Sounds, Right: Clear and Equal (Crystal Jaz, RN) Nausea/Vomiting: Denies (Crystal Chester, RN) RUQ Epigastric Pain: Present (Crystal Jaz, RN) Teaching Instructional Method: Verbal; Patient Instructed; Verbalized Understanding (Kathleen Sebastian RN) Plan of Care: Plan of Care Discussed (Kathleen Sebastian RN) Unit Routine: [place] to Room; [place]; Bed; Visiting Policy; Waiting Areas; Infant Security; Phone/Cell Phone Use; Photography; Unit Personnel; Monitoring; IV Pumps; Safety/Fall Risk Prevention; Bathroom Privileges; Medications (Kathleen Sebastian RN) Labor/Induction: Labor Stages; Induction; Interventions (Kathleen Sebastian RN) Pain Management: Epidural; Pain Scale/Goals; Comfort Measures (Kathleen Sebastian RN) Related: Common Discomforts of ; Maternal Physical Changes; Maternal Emotional Changes; Hydration; Activity and Rest (Kathleen Sebastian RN)
[2016-05-17] MEDS ORDERED: EPHEDRINE SULFATE INJ 50 MG/1 ML AMPULE ONE (08:59)
[2016-05-17] MEDS ORDERED: FENTANYL/BUPIVACAINE/NS/PF 200 MCG/100 ML RTUINJ EPI ONE (08:59)
[2016-05-17] MEDS ORDERED: BUPIVACAINE HCL 0.25 % INJ/PF (2.5 MG/1 ML) 30 ML VIAL ONE (09:00)
[2016-05-17] MEDS ORDERED: FENTANYL/BUPIVACAINE/NS/PF 100 ML EPI PRN (09:50)
[2016-05-17] MEDS ORDERED: BUPIVACAINE HCL 0.25 % INJ/PF (2.5 MG/1 ML) 30 ML VIAL INFIL ONE (09:50)
[2016-05-17] MEDS ORDERED: BENZOIN/ALOE VERA/STORAX/TOLU TINCTURE 60 ML TP PRN (09:50)
--- NOTE | 2016-05-17 10:00 | L&D Flow Sheet ---
LD Flowsheet Datetime Report Generated by CPN: 05/17/2016 10:00 Datetime: 05/17/2016 09:58 IV/Blood Work: IV Infusing per Order (Magui Marlatt, RN) Patient Care Comments: LR at 125ml/hr (Magui Marlatt, RN) Datetime: 05/17/2016 09:51 NBP Sys/Mari/Mean (mmHg): 132 (QS system process) : 91 (QS system process) : 107 (QS system process) Pulse: 88 (QS system process) LaborFlag: Antepartum (QS system process) Datetime: 05/17/2016 09:46 IV/Blood Work: IV Bolus Started (Magui Cote, RN) Oxygen Amount : 10 (Magui Cote, RN) Oxygen Method: Non-Rebreather (Magui Cote, RN) Patient Position/Activity: Left Lateral; Low Fowlers (Magui Marlajong, RN) Datetime: 05/17/2016 09:34 Patient Position/Activity: Right Lateral; Low Fowlers (Magui Tierneylatt, RN) Datetime: 05/17/2016 09:32 NBP Sys/Mari/Mean (mmHg): 123 (QS system process) : 87 (QS system process) : 100 (QS system process) Pulse: 90 (QS system process) IV/Blood Work: IV Infusing per Order (Magui Cote RN) Patient Care Comments: LR at 125ml (Magui Cote RN) LaborFlag: Antepartum (QS system process) Datetime: 05/17/2016 09:30 I/O Interventions: Conner Cath Inserted (Magui Cote, RODRIGUEZ) Datetime: 05/17/2016 09:27 NBP Sys/Mari/Mean (mmHg): 126 (QS system process) : 91 (QS system process) : 105 (QS system process) Pulse: 96 (QS system process) LaborFlag: Antepartum (QS system process) Datetime: 05/17/2016 09:25 NBP Sys/Mari/Mean (mmHg): 124 (QS system process) : 89 (QS system process) : 102 (QS system process) Pulse: 94 (QS system process) LaborFlag: Antepartum (QS system process) Datetime: 05/17/2016 09:23 NBP Sys/Mari/Mean (mmHg): 130 (QS system process) : 92 (QS system process) : 106 (QS system process) Pulse: 93 (QS system process) Epidural Procedure Other: Pump Started (Magui Cote RN) LaborFlag: Antepartum (QS system process) Datetime: 05/17/2016 09:21 NBP Sys/Mari/Mean (mmHg): 138 (QS system process) : 94 (QS system process) : 111 (QS system process) Pulse: 104 (QS system process) LaborFlag: Antepartum (QS system process) Datetime: 05/17/2016 09:20 Epidural Procedure: Cath Placed (Magui Marlatt, RN) Datetime: 05/17/2016 09:19 NBP Sys/Mari/Mean (mmHg): 140 (QS system process) : 90 (QS system process) : 108 (QS system process) Pulse: 98 (QS system process) LaborFlag: Antepartum (QS system process) Datetime: 05/17/2016 09:18 Pulse: 101 (QS system process) SpO2 (%): 97 (QS system process) Epidural Procedure: Test Dose (Magui Cote RN) LaborFlag: Antepartum (QS system process) Datetime: 05/17/2016 09:13 Pulse: 95 (QS system process) SpO2 (%): 98 (QS system process) LaborFlag: Antepartum (QS system process) Datetime: 05/17/2016 09:12 Procedure Verify: Correct Patient Identity; Accurate Procedure Consent Form; Agreement on Procedure to be Done; Correct Patient Position (Magui Cote RN) Anesthesia Plans: Epidural (Magui Cote RN) Epidural Positioning: Sitting (Magui Cote RN) Anesthesia Comments: Dr. Chandler at bedside (Magui Cote RN) Datetime: 05/17/2016 09:00 Pain Assessment Comments: Notified Dr. Chandler of patient's request for epidural. States he will be up in15-20 minutes (Magui Cote RN) Comfort Measures: Anesthesia Notified (Magui Cote RN) LaborFlag: Antepartum (QS system process) Datetime: 05/17/2016 08:51 NBP Sys/Mari/Mean (mmHg): 119 (QS system process) : 83 (QS system process) : 97 (QS system process) Pulse: 102 (QS system process) LaborFlag: Antepartum (QS system process) Datetime: 05/17/2016 08:45 Monitor Mode: External (Magui Marlatt, RN) Frequency (min): 2-4 (Magui Marlatt, RN) Quality: Moderate (Magui Marlatt, RN) Duration (sec): 80-120 (Magui Marlatt, RN) Resting Tone (Palpate): Relaxed (Magui Marlatt, RN) Monitor Mode: External US (Magui Marlatt, RN) FHR Baseline Rate : 125 (Magui Marlatt, RN) Variability: Moderate 6-25 bpm (Magui Marlatt, RN) Accelerations: 15X15 (Magui Marlatt, RN) Decelerations: Early (Magui Marlatt, RN) Pitocin (milliunit): Pitocin Remains (milliunits) @ 2 (Magui Marlatt, RN) Datetime: 05/17/2016 08:30 Monitor Mode: External (Magui Marlatt, RN) Frequency (min): 2.5-4 (Magui Marlatt, RN) Quality: Moderate (Magui Marlatt, RN) Duration (sec): 80-120 (Magui Marlatt, RN) Resting Tone (Palpate): Relaxed (Magui Marlatt, RN) Monitor Mode: External US (Magui Marlatt, RN) FHR Baseline Rate : 125 (Magui Marlatt, RN) Variability: Moderate 6-25 bpm (Magui Marlatt, RN) Accelerations: 15X15 (Magui Marlatt, RN) Decelerations: None (Magui Cote, RN) Pitocin (milliunit): Pitocin Remains (milliunits) @ 2 (Magui Cote, RN) Datetime: 05/17/2016 08:21 IV/Blood Work: IV Bolus Started; New IV Bag Hung (Magui Cote, RN) Datetime: 05/17/2016 08:20 NBP Sys/Mari/Mean (mmHg): 127 (QS system process) : 93 (QS system process) : 106 (QS system process) Pulse: 102 (QS system process) Respirations: 16 (Magui Cote, RN) LaborFlag: Antepartum (QS system process) Datetime: 05/17/2016 08:18 Communication: Provider Orders Received; Call/Page Placed to Provider (Magui Cote RN) Provider Notified (Name): Freddie Jensen CNM (Magui Cote RN) Notification Reason: Status Update; Status; Membrane Status; Uterine Activity; Pain (Magui Cote RN) Communication Comments: Notified provider of patient's SROM and request of an epidural . Received order for epidural (Magui Cote RN) Datetime: 05/17/2016 08:15 Monitor Mode: External; Palpation (Magui Cote RN) Frequency (min): 2.5-5 (Magui Cote RN) Quality: Moderate (Magui Cote RN) Duration (sec): 70-120 (Magui Cote RN) Resting Tone (Palpate): Relaxed (Magui Cote RN) Monitor Mode: External US (Magui Cote RN) FHR Baseline Rate : 130 (Magui Cote RN) Variability: Moderate 6-25 bpm (Magui Cote RN) Accelerations: 15X15 (Magui Cote RN) Decelerations: None (Magui Cote RN) Pitocin (milliunit): Pitocin Remains (milliunits) @ 2 (Magui Cote RN) Datetime: 05/17/2016 08:14 Pain Coping: Requesting Pain Medication or Epidural (Magui Marlatt, RN) Datetime: 05/17/2016 08:13 Membrane Status: Ruptured (Magui Cote, RN) Membranes Rupture Method: Spontaneous (Magui Cote, RN) Amniotic Fluid Color: Light Meconium (Magui Cote, RN) Amniotic Fluid Amount: Small (Maguifrancois Cote, RN) Datetime: 05/17/2016 08:00 Monitor Mode: External (Magui Cote RN) Frequency (min): 3-3.5 (Magui Cote RN) Quality: Mild/Moderate (Magui Cote RN) Duration (sec): 90-110 (Magui Cote RN) Resting Tone (Palpate): Relaxed (Magui Cote RN) Monitor Mode: External US (Magui Cote RN) FHR Baseline Rate : 130 (Magui Cote RN) Variability: Moderate 6-25 bpm (Magui Cote RN) Accelerations: 15X15 (Magui Cote RN) Decelerations: None (Magui Cote RN) Pitocin (milliunit): Pitocin Remains (milliunits) @ 2 (Magui Cote RN)
[2016-05-17] MEDS ORDERED: MISOPROSTOL 0.2 MG TABLET ONE (10:11)
[2016-05-17] MEDS ORDERED: LIDOCAINE 1% INJ-PF (10 MG/ML) 30 ML SDV ONE (10:11)
[2016-05-17] MEDS ORDERED: DIBUCAINE 1% OINTMENT 28 GM TP PRN (10:18)
[2016-05-17] MEDS ORDERED: ZOLPIDEM TARTRATE 5 MG TABLET PO PRN (10:18)
[2016-05-17] MEDS ORDERED: MEASLES,MUMPS&RUBELLA VACC/PF 0.5 ML VIAL SUBCUT PRN (10:18)
[2016-05-17] MEDS ORDERED: ACETAMINOPHEN WITH CODEINE #3 TABLET PO PRN ×2 (10:18)
[2016-05-17] MEDS ORDERED: DIPH/PERTUSS(ACELL)/TETANUS VAC/PF 0.5 ML SYR (>=10YO) IM PRN (10:18)
[2016-05-17] MEDS ORDERED: BENZOCAINE/MENTHOL AEROSOL SPRAY 56 ML TOP PRN (10:18)
[2016-05-17] MEDS ORDERED: PENICILLIN G POTASSIUM 2,500,000 UNIT in DEXTROSE 5%-WATER 50 ML IV SCH (10:28)
[2016-05-17] MEDS ORDERED: PENICILLIN G-K 5 MILLION UNIT VIAL IV SCH (11:00)
--- NOTE | 2016-05-17 12:00 | L&D Flow Sheet ---
LD Flowsheet Datetime Report Generated by CPN: 05/17/2016 12:00 Datetime: 05/17/2016 11:40 NBP Sys/Mari/Mean (mmHg): 124 (QS system process) : 79 (QS system process) : 97 (QS system process) Pulse: 102 (QS system process) Datetime: 05/17/2016 11:15 Stage of : Recovery (Get Nguyen RN) Pain Scale: 0 (Get Nguyen RN) Pain Presence: None/Denies (Get Nguyen RN) Pain Type: N/A (Get Nguyen RN) Datetime: 05/17/2016 11:09 NBP Sys/Mari/Mean (mmHg): 128 (QS system process) : 82 (QS system process) : 101 (QS system process) Pulse: 90 (QS system process) LaborFlag: Antepartum (QS system process) Datetime: 05/17/2016 11:00 Pain Scale: 0 (Magui Cote RN) Pain Presence: None/Denies (Magui Cote RN) Pain Type: N/A (Magui Cote RN) LaborFlag: Antepartum (QS system process) Datetime: 05/17/2016 10:45 Pain Scale: 0 (Magui Marlatt, RN) Pain Presence: None/Denies (Magui Marlatt, RN) Pain Type: N/A (Magui Kelsylatt, RN) LaborFlag: Antepartum (QS system process) Datetime: 05/17/2016 10:36 NBP Sys/Mari/Mean (mmHg): 133 (QS system process) : 89 (QS system process) : 107 (QS system process) Pulse: 101 (QS system process) LaborFlag: Antepartum (QS system process) Datetime: 05/17/2016 10:30 Pain Scale: 0 (Magui Cote, RN) Pain Presence: None/Denies (Magui Marlatt, RN) Pain Type: N/A (Magui Marlatt, RN) LaborFlag: Antepartum (QS system process) Datetime: 05/17/2016 10:21 NBP Sys/Mari/Mean (mmHg): 136 (QS system process) : 90 (QS system process) : 107 (QS system process) Pulse: 98 (QS system process) LaborFlag: Antepartum (QS system process) Datetime: 05/17/2016 10:15 Monitor Mode: External (Magui Cote, RN) Frequency (min): 2-2.5 (Magui Cote, RN) Quality: Moderate to Strong (Magui Shelleytt, RN) Duration (sec): 80-110 (Magui Marlatt, RN) Resting Tone (Palpate): Relaxed (Magui Cote, RN) Monitor Mode: External US (Magui Cote, RN) FHR Baseline Rate : 120 (Magui Shelleytt, RN) Variability: Moderate 6-25 bpm (Magui Kelsylatt, RN) Accelerations: 10X10 (Magui Kelsylatt, RN) Datetime: 05/17/2016 10:12 Comments: RN at bedside continuously monitoring FHTs while patient pushing with contractions. (Magui Cote, RN) Pushing: Coached on Pushing; Urge to Push (Renuka Del Angel, RN) Pushing Position: Pushing with Contractions (Renuka Del Angel, RN) Pushing Progress: Descent with Pushing (Renuka Del Angel, RN) Communication Comments: Dr. Zavala at bedside (Renuka Mer, RN) Datetime: 05/17/2016 10:10 Communication Comments: C. Jensen CNM at bedside (Renuka Mer, RN) Datetime: 05/17/2016 10:08 Dilatation (cm): 10.0 (Renuka Del Angel RN) Effacement (%): 100 (Renuka Del Angel RN) Station: 2 (Renuka Del Angel RN) Exam by: Adri Cote RN (Renuka Del Angel RN) Datetime: 05/17/2016 10:06 NBP Sys/Mari/Mean (mmHg): 133 (QS system process) : 94 (QS system process) : 110 (QS system process) Pulse: 96 (QS system process) LaborFlag: Antepartum (QS system process) Datetime: 05/17/2016 10:00 Monitor Mode: External (Magui Cote RN) Frequency (min): 3 (Magui Cote RN) Quality: Moderate to Strong (Magui Cote RN) Duration (sec): 100 (Magui Cote RN) Resting Tone (Palpate): Relaxed (Magui Cote RN) Monitor Mode: External US (Magui Marlatt, RN) FHR Baseline Rate : 120 (Magui Cote RN) Variability: Moderate 6-25 bpm (Magui Cote RN) Accelerations: 15X15 (Magui Cote RN) Decelerations: None (Magui Cote RN) Pitocin (milliunit): Pitocin Remains (milliunits) @ 2 (Magui Cote RN)
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
--- NOTE | 2016-05-17 13:03 | Delivery Summary ---
Del Sum A-C Datetime Report Generated by CPN: 05/17/2016 13:03 ADMISSION DATA Chief Complaint: Scheduled Induction of Labor Indication for Induction: Post Dates Admission Impression: Term, Intrauterine DELIVERY PERSONNEL Delivery Doctor:: Dorothea Jensen CNM Nurse Counter Pocket Sewer Certified:: Dorothea Jensen CNM Labor and Delivery Nurse:: Magui Cote RNradius corner machine operator Nurse:: ASHWIN Velasquez Entry Level Project Engineer/CHIEF INTERNAL AUDITOR: Yana Toney CST Entry Level Project Engineer/CHIEF INTERNAL AUDITOR: Marii Barrios CNA II MATERNAL INFORMATION Delivery Anesthesia: Epidural Medications After Delivery: Pitocin Drip 20 Units/1000ml NSS Estimated Blood Loss (ml): 75 Maternal Complications: Other Other Maternal Complications: Hep C positive Provider Comments: Pt. quickly progressed to c/c/+2 with urge to push, began pushing and went on to deliver a viable baby girl in LINDA position. Large amount of moderate stained meconium fluid with delivery as well as terminal meconium noted. Vigorous respiratory effort and cry spontaneously at . Baby placed on maternal abdomen, cord allowed to stop pulsating then clamped x2 and cut by Pt's friend. Placenta delivered spontaneously intact (3vc noted). Fundus firm at U-1, bleeding stable. Mother and baby skin to skin and bonding. Lacerations as noted above. Dr. Zavala present for delivery. LABOR SUMMARY EDC: 05/13/2016 00:00 No. Babies in Womb: 1 Attempted: No Labor Anesthesia: Epidural LABOR INFORMATION Reason for Induction: Other Reason for Induction- Other: History of IUFD Onset of Labor: 05/17/2016 08:21 Complete Dilatation: 05/17/2016 10:08 Oxytocin: Induction Group B Beta Strep: Positive Antibiotics # of Doses: 1 Antibiotics Time of Last Dose: 646 Name of Antibiotic Given: PCN G MEMBRANES Membranes Rupture Method: Spontaneous Rupture of Membranes: 05/17/2016 08:13 Length of Rupture (hr): 2.05 Amniotic Fluid Color: Light Meconium Amniotic Fluid Amount: Small Amniotic Fluid Odor: Normal STAGES OF LABOR Stage 1 hr: 1 Stage 1 min: 47 Stage 2 hr: 0 Stage 2 min: 8 Stage 3 hr: 0 Stage 3 min: 6 Total Time in Labor hr: 2 Total Time in Labor min: 1 VAGINAL DELIVERY Episiotomy: None Laceration Extension: N/A Laceration Type: None Other Laceration: bilateral labial abrasions-hemostatic no repair needed Laceration Repair: Not Applicable Sponge Count Correct: N/A Sharps Count Correct: N/A CSECTION DELIVERY Primary Indication: N/A Secondary Indication: N/A BABY A INFORMATION Infant Delivery Date/Time: 05/17/2016 10:16 Method of Delivery: Vaginal Born in Route : No : N/A Forceps: N/A Vacuum Extraction: N/A Shoulder Dystocia : No PRESENTATION/POSITION BABY A Presentation: Cephalic Cephalic Presentation: Vertex Vertex Position: Left Occipital Anterior Breech Presentation: N/A PLACENTA INFORMATION BABY A Placenta Delivery Time : 05/17/2016 10:22 Placenta Method of Delivery: Spontaneous Placenta Status: Delivered SCORES BABY A Heart Rate 1 min: >100 bpm Resp Effort 1 min: Good Cry Reflex Irritability 1 min: Cough or Sneeze or Pulls Away Muscle Tone 1 min: Active Motion Color 1 min: Body Gully, Extremities Blue Resuscitation Effort 1 min: Tactile Stimulation SCORE 1 MIN: 9 Heart Rate 5 min: >100 bpm Resp Effort 5 min: Good Cry Reflex Irritability 5 min: Cough or Sneeze or Pulls Away Muscle Tone 5 min: Active Motion Color 5 min: Completely Gully Resuscitation Effort 5 min: Tactile Stimulation SCORE 5 MIN: 10 INFORMATION BABY A Gestational Age at Delivery: 40.4 Gestational Status: Full Term- 39- 40.6 Weeks Outcome : Liveborn Infant Condition : Stable Infant Sex: Female IDENTIFICATION BABY A Verification Date/Time: 05/17/2016 10:29 ID Band Number: [id number] Mother's Name Verified: Yes Infant RN Verifying Infant: Adri Cote RODRIGUEZ Additional Verifying Personnel: Dean Thompson CNA WEIGHT/LENGTH BABY A Infant Birthweight (gm): 3600 Infant Weight (lb): 7 Infant Weight (oz): 15 Infant Length (in): 20.50 Length (cm): 52.07 CORD INFORMATION BABY A No. Cord Vessels: 3 Nuchal Cord : N/A Cord Blood Taken: Yes-For Eval (Mom's Blood Type - or O+) Infant Suction: Mouth ASSESSMENT BABY A Infant Complications: None Physical Findings at Delivery: Within Normal Limits Respirations: Appears Normal Skin to Skin: Yes Skin to Skin Time (min): 60 Residence Counselor/ALS Called : No Infant Care By: Rosita Youngblood RN Transferred To: Remains with Mother SIGNATURES Assignment: Bindu Zavala MD Signature: with User ID: [email or web address] : with User ID: [email or web address]
[2016-05-17] MEDS: IBUPROFEN 800 MG TABLET PO SCH ×2 (14:52→22:02)
[2016-05-17] MEDS: DOCUSATE SODIUM 100 MG CAPSULE PO SCH (17:25)
[2016-05-17] MEDS: FERROUS SULFATE 325 MG TABLET PO SCH (17:25)
--- NOTE | 2016-05-17 19:01 | L&D Flow Sheet ---
LD Flowsheet Datetime Report Generated by CPN: 05/17/2016 19:00 Datetime: 05/17/2016 12:15 Stage of : Recovery (Magui Marlatt, RN) Pain Scale: 0 (Magui Marlatt, RN) Pain Presence: None/Denies (Magui Marlatt, RN) Pain Type: N/A (Magui Marlatt, RN) Datetime: 05/17/2016 12:10 Temperature (F): 98.2 (Magui Marlatt, RN) Temperature (C): 36.8 (QS system process) Datetime: 05/17/2016 12:09 NBP Sys/Mari/Mean (mmHg): 123 (QS system process) : 82 (QS system process) : 99 (QS system process) Pulse: 101 (QS system process) Datetime: 05/17/2016 12:00 Stage of : Recovery (Magui Cote RN) Pain Scale: 0 (Magui Cote RN) Pain Presence: None/Denies (Magui Cote, RODRIGUEZ) Pain Type: N/A (Magui Cote, RODRIGUEZ) Datetime: 05/17/2016 11:45 Stage of : Recovery (Magui Cote, RN) Pain Scale: 0 (Magui Marbriantt, RN) Pain Presence: None/Denies (Magui Tierneylajong, RN) Pain Type: N/A (Magui Cote, RN) Datetime: 05/17/2016 11:40 NBP Sys/Mari/Mean (mmHg): 124 (QS system process) : 79 (QS system process) : 97 (QS system process) Pulse: 102 (QS system process) Respirations: 16 (Magui Cote, RN) Datetime: 05/17/2016 11:30 Stage of : Recovery (Magui Cote, RN) Pain Scale: 0 (Magui Marlatt, RN) Pain Presence: None/Denies (Magui Marlatt, RN) Pain Type: N/A (Magui Cote, RN) Datetime: 05/17/2016 11:15 Stage of : Recovery (Get Nguyen RN) Pain Scale: 0 (Get Nguyen RN) Pain Presence: None/Denies (Get Nguyen RN) Pain Type: N/A (Get Nguyen RN) Datetime: 05/17/2016 11:09 NBP Sys/Mari/Mean (mmHg): 128 (QS system process) : 82 (QS system process) : 101 (QS system process) Pulse: 90 (QS system process) LaborFlag: Antepartum (QS system process) Datetime: 05/17/2016 11:00 Pain Scale: 0 (Magui Tierneylatt, RN) Pain Presence: None/Denies (Magui Kelsylatt, RN) Pain Type: N/A (Magui Kelsylatt, RN) LaborFlag: Antepartum (QS system process) Datetime: 05/17/2016 10:45 Pain Scale: 0 (Magui Tierneylajong, RN) Pain Presence: None/Denies (Magui Tierneylajong, RN) Pain Type: N/A (Magui Tierneylatt, RN) LaborFlag: Antepartum (QS system process) Datetime: 05/17/2016 10:36 NBP Sys/Mari/Mean (mmHg): 133 (QS system process) : 89 (QS system process) : 107 (QS system process) Pulse: 101 (QS system process) LaborFlag: Antepartum (QS system process) Datetime: 05/17/2016 10:30 Pain Scale: 0 (Magui Cote, RN) Pain Presence: None/Denies (Magui Cote, RN) Pain Type: N/A (Magui Cote, RN) LaborFlag: Antepartum (QS system process) Datetime: 05/17/2016 10:21 NBP Sys/Mari/Mean (mmHg): 136 (QS system process) : 90 (QS system process) : 107 (QS system process) Pulse: 98 (QS system process) LaborFlag: Antepartum (QS system process) Datetime: 05/17/2016 10:15 Monitor Mode: External (Magui Shelleytt, RN) Frequency (min): 2-2.5 (Magui Shelleytt, RN) Quality: Moderate to Strong (Magui Marlatt, RN) Duration (sec): 80-110 (Magui Marlatt, RN) Resting Tone (Palpate): Relaxed (Magui Kelsylatt, RN) Monitor Mode: External US (Magui Shelleytt, RN) FHR Baseline Rate : 120 (Magui Kelsylatt, RN) Variability: Moderate 6-25 bpm (Magui Marlatt, RN) Accelerations: 10X10 (Magui Marlatt, RN) Datetime: 05/17/2016 10:12 Comments: RN at bedside continuously monitoring FHTs while patient pushing with contractions. (Magui Cote, RODRIGUEZ) Pushing: Coached on Pushing; Urge to Push (Renuka Del Angel, RODRIGUEZ) Pushing Position: Pushing with Contractions (Renuka Del Angel, RN) Pushing Progress: Descent with Pushing (Renuka Del Angel, RN) Communication Comments: Dr. Zavala at bedside (Renuka Del Angel, RODRIGUEZ) Datetime: 05/17/2016 10:10 Communication Comments: C. Jensen CNM at bedside (Renuka Mer, RN) Datetime: 05/17/2016 10:08 Dilatation (cm): 10.0 (Renuka Mer, RN) Effacement (%): 100 (Renuka Mer, RN) Station: 2 (Renuka Mer, RN) Exam by: Adri Kelsyedwin RN (Renuka Mer, RN) Datetime: 05/17/2016 10:06 NBP Sys/Mari/Mean (mmHg): 133 (QS system process) : 94 (QS system process) : 110 (QS system process) Pulse: 96 (QS system process) LaborFlag: Antepartum (QS system process) Datetime: 05/17/2016 10:00 Monitor Mode: External (Magui Marlatt, RN) Frequency (min): 3 (Magui Marlatt, RN) Quality: Moderate to Strong (Magui Marlatt, RN) Duration (sec): 100 (Magui Marlatt, RN) Resting Tone (Palpate): Relaxed (Magui Marlatt, RN) Monitor Mode: External US (Magui Marlatt, RN) FHR Baseline Rate : 120 (Magui Marlatt, RN) Variability: Moderate 6-25 bpm (Magui Marlatt, RN) Accelerations: 15X15 (Magui Marlatt, RN) Decelerations: None (Magui Marlatt, RN) Pitocin (milliunit): Pitocin Remains (milliunits) @ 2 (Magui Marlatt, RN) Datetime: 05/17/2016 09:58 IV/Blood Work: IV Infusing per Order (Magui Marlatt, RN) Patient Care Comments: LR at 125ml/hr (Magui Marlatt, RN) Datetime: 05/17/2016 09:51 NBP Sys/Mari/Mean (mmHg): 132 (QS system process) : 91 (QS system process) : 107 (QS system process) Pulse: 88 (QS system process) LaborFlag: Antepartum (QS system process) Datetime: 05/17/2016 09:46 IV/Blood Work: IV Bolus Started (Magui Cote RN) Oxygen Amount : 10 (Magui Cote RN) Oxygen Method: Non-Rebreather (Magui Cote RN) Patient Position/Activity: Left Lateral; Low Fowlers (Magui Cote RN) Datetime: 05/17/2016 09:45 Monitor Mode: External (Magui Marlatt, RN) Frequency (min): 2.5-3 (Magui Marlatt, RN) Quality: Moderate to Strong (Magui Marlatt, RN) Duration (sec): 80-100 (Magui Marlatt, RN) Resting Tone (Palpate): Relaxed (Magui Marlatt, RN) Monitor Mode: External US (Magui Marlatt, RN) FHR Baseline Rate : 120 (Magui Marlatt, RN) Variability: Minimal - Undetectable to <=5 bpm (Magui Marlatt, RN) Accelerations: 10X10 (Magui Marlatt, RN) Decelerations: Early (Magui Marlatt, RN) Pitocin (milliunit): Pitocin Remains (milliunits) @ 2 (Magui Marlatt, RN) Datetime: 05/17/2016 09:34 Patient Position/Activity: Right Lateral; Low Fowlers (Magui Marlatt, RN) Datetime: 05/17/2016 09:32 NBP Sys/Mari/Mean (mmHg): 123 (QS system process) : 87 (QS system process) : 100 (QS system process) Pulse: 90 (QS system process) IV/Blood Work: IV Infusing per Order (Magui Cote RN) Patient Care Comments: LR at 125ml (Magui Cote RN) LaborFlag: Antepartum (QS system process) Datetime: 05/17/2016 09:30 Monitor Mode: External; Palpation (Magui Cote RN) Frequency (min): 2.5-3 (Magui Cote RN) Quality: Moderate to Strong (Magui Cote RN) Duration (sec): 70-90 (Magui Cote RN) Resting Tone (Palpate): Relaxed (Magui Cote RN) Monitor Mode: External US (Magui Cote RN) FHR Baseline Rate : 120 (Magui Cote RN) Variability: Moderate 6-25 bpm (Magui Cote RN) Decelerations: Early (Magui Cote RN) Pitocin (milliunit): Pitocin Remains (milliunits) @ 2 (Magui Cote RN) I/O Interventions: Conner Cath Inserted (Magui Cote RN) Datetime: 05/17/2016 09:27 NBP Sys/Mari/Mean (mmHg): 126 (QS system process) : 91 (QS system process) : 105 (QS system process) Pulse: 96 (QS system process) LaborFlag: Antepartum (QS system process) Datetime: 05/17/2016 09:25 NBP Sys/Mari/Mean (mmHg): 124 (QS system process) : 89 (QS system process) : 102 (QS system process) Pulse: 94 (QS system process) LaborFlag: Antepartum (QS system process) Datetime: 05/17/2016 09:23 NBP Sys/Mari/Mean (mmHg): 130 (QS system process) : 92 (QS system process) : 106 (QS system process) Pulse: 93 (QS system process) Epidural Procedure Other: Pump Started (Magui Marlatt, RN) LaborFlag: Antepartum (QS system process) Datetime: 05/17/2016 09:21 NBP Sys/Mari/Mean (mmHg): 138 (QS system process) : 94 (QS system process) : 111 (QS system process) Pulse: 104 (QS system process) LaborFlag: Antepartum (QS system process) Datetime: 05/17/2016 09:20 Epidural Procedure: Cath Placed (Magui Marlatt, RN) Datetime: 05/17/2016 09:19 NBP Sys/Mari/Mean (mmHg): 140 (QS system process) : 90 (QS system process) : 108 (QS system process) Pulse: 98 (QS system process) LaborFlag: Antepartum (QS system process) Datetime: 05/17/2016 09:18 Pulse: 101 (QS system process) SpO2 (%): 97 (QS system process) Epidural Procedure: Test Dose (Magui Cote RN) LaborFlag: Antepartum (QS system process) Datetime: 05/17/2016 09:15 Monitor Mode: External; Palpation (Magui Cote RN) Frequency (min): 3.5-4 (Magui Cote RN) Quality: Moderate to Strong (Magui Cote RN) Duration (sec): 80-90 (Magui Cote RN) Resting Tone (Palpate): Relaxed (Magui Cote RN) Monitor Mode: External US (Magui Cote RN) FHR Baseline Rate : 125 (Magui Marlatt, RN) Variability: Moderate 6-25 bpm (Magui Cote RN) Decelerations: None (Magui Cote RN) Pitocin (milliunit): Pitocin Remains (milliunits) @ 2 (Magui Cote RN) Datetime: 05/17/2016 09:13 Pulse: 95 (QS system process) SpO2 (%): 98 (QS system process) LaborFlag: Antepartum (QS system process) Datetime: 05/17/2016 09:12 Procedure Verify: Correct Patient Identity; Accurate Procedure Consent Form; Agreement on Procedure to be Done; Correct Patient Position (Magui Cote RN) Anesthesia Plans: Epidural (Magui Cote RN) Epidural Positioning: Sitting (Magui Cote RN) Anesthesia Comments: Dr. Chandler at bedside (Magui Cote RN) Datetime: 05/17/2016 09:00 Pain Assessment Comments: Notified Dr. Chandler of patient's request for epidural. States he will be up in15-20 minutes (Magui Cote RN) Comfort Measures: Anesthesia Notified (Magui Cote RN) LaborFlag: Antepartum (QS system process) Datetime: 05/17/2016 08:51 NBP Sys/Mari/Mean (mmHg): 119 (QS system process) : 83 (QS system process) : 97 (QS system process) Pulse: 102 (QS system process) LaborFlag: Antepartum (QS system process) Datetime: 05/17/2016 08:45 Monitor Mode: External (Magui Marlatt, RN) Frequency (min): 2-4 (Magui Marlatt, RN) Quality: Moderate (Magui Marlatt, RN) Duration (sec): 80-120 (Magui Marlatt, RN) Resting Tone (Palpate): Relaxed (Magui Marlatt, RN) Monitor Mode: External US (Magui Marlatt, RN) FHR Baseline Rate : 125 (Magui Marlatt, RN) Variability: Moderate 6-25 bpm (Magui Marlatt, RN) Accelerations: 15X15 (Magui Marlatt, RN) Decelerations: Early (Magui Marlatt, RN) Pitocin (milliunit): Pitocin Remains (milliunits) @ 2 (Magui Kelsylatt, RN) Datetime: 05/17/2016 08:30 Monitor Mode: External (Magui Marlatt, RN) Frequency (min): 2.5-4 (Magui Marlatt, RN) Quality: Moderate (Magui Marlatt, RN) Duration (sec): 80-120 (Magui Marlatt, RN) Resting Tone (Palpate): Relaxed (Magui Marlatt, RN) Monitor Mode: External US (Magui Marlatt, RN) FHR Baseline Rate : 125 (Magui Marlatt, RN) Variability: Moderate 6-25 bpm (Magui Marlatt, RN) Accelerations: 15X15 (Magui Marlatt, RN) Decelerations: None (Magui Marlatt, RN) Pitocin (milliunit): Pitocin Remains (milliunits) @ 2 (Magui Marlatt, RN) Datetime: 05/17/2016 08:21 IV/Blood Work: IV Bolus Started; New IV Bag Hung (Magui Cote, RN) Datetime: 05/17/2016 08:20 NBP Sys/Mari/Mean (mmHg): 127 (QS system process) : 93 (QS system process) : 106 (QS system process) Pulse: 102 (QS system process) Respirations: 16 (Magui Cote, RN) LaborFlag: Antepartum (QS system process) Datetime: 05/17/2016 08:18 Communication: Provider Orders Received; Call/Page Placed to Provider (Magui Cote RN) Provider Notified (Name): Freddie Jensen CNM (Magui Cote RN) Notification Reason: Status Update; Status; Membrane Status; Uterine Activity; Pain (Magui Cote RN) Communication Comments: Notified provider of patient's SROM and request of an epidural . Received order for epidural (Magui Cote RN) Datetime: 05/17/2016 08:15 Monitor Mode: External; Palpation (Magui Cote RN) Frequency (min): 2.5-5 (Magui Cote RN) Quality: Moderate (Magui Cote RN) Duration (sec): 70-120 (Magui Cote RN) Resting Tone (Palpate): Relaxed (Magui Cote RN) Monitor Mode: External US (Magui Cote RN) FHR Baseline Rate : 130 (Magui Cote RN) Variability: Moderate 6-25 bpm (Magiu Cote RN) Accelerations: 15X15 (Magui Cote RN) Decelerations: None (Magui Cote RN) Pitocin (milliunit): Pitocin Remains (milliunits) @ 2 (Magui Cote RN) Datetime: 05/17/2016 08:14 Pain Coping: Requesting Pain Medication or Epidural (Magui Cote, RODRIGUEZ) Datetime: 05/17/2016 08:13 Membrane Status: Ruptured (Magui Cote RN) Membranes Rupture Method: Spontaneous (Magui Cote RN) Amniotic Fluid Color: Light Meconium (Magui Cote RN) Amniotic Fluid Amount: Small (Magui Marlajong, RODRIGUEZ) Datetime: 05/17/2016 08:00 Monitor Mode: External (Magui Cote RN) Frequency (min): 3-3.5 (Magui Cote RN) Quality: Mild/Moderate (Magui Marlatt, RN) Duration (sec): 90-110 (Magui Kelsylatt, RN) Resting Tone (Palpate): Relaxed (Magui Tierneylatt, RN) Monitor Mode: External US (Magui Cote, RN) FHR Baseline Rate : 130 (Magui Kelsylatt, RN) Variability: Moderate 6-25 bpm (Magui Marlatt, RN) Accelerations: 15X15 (Magui Marlatt, RN) Decelerations: None (Magui Marlatt, RN) Pitocin (milliunit): Pitocin Remains (milliunits) @ 2 (Magui Kelsylatt, RN) Datetime: 05/17/2016 07:50 NBP Sys/Mari/Mean (mmHg): 121 (QS system process) : 81 (QS system process) : 96 (QS system process) Pulse: 109 (QS system process) Respirations: 16 (Magui Cote, RN) LaborFlag: Antepartum (QS system process) Datetime: 05/17/2016 07:45 Monitor Mode: External; Palpation (Magui Cote, RN) Frequency (min): 6 (Magui Cote, RN) Quality: Mild/Moderate (Magui Tierneylatt, RN) Duration (sec): 100-120 (Magui Shelleytt, RN) Resting Tone (Palpate): Relaxed (Magui Cote, RN) Monitor Mode: External US (Magui Cote, RN) Monitor Interventions for FHR: Ultrasound Adjusted (Magui Ctoe, RN) FHR Baseline Rate : 130 (Magui Cote, RN) Variability: Moderate 6-25 bpm (Magui Cote, RN) Accelerations: 15X15 (Magui Cote, RN) Decelerations: None (Magui Cote, RN) Pitocin (milliunit): Pitocin Remains (milliunits) @ 2 (Magui Marlatt, RN) Datetime: 05/17/2016 07:41 Pitocin (milliunit): Pitocin Started (milliunits) @ 2 (Magui Marlatt, RN) Datetime: 05/17/2016 07:29 Monitor Mode: External (Magui Marlatt, RN) Frequency (min): 2.5-5.5 (Magui Marlatt, RN) Quality: Mild (Magui Marlatt, RN) Duration (sec): 100-120 (Magui Marlatt, RN) Resting Tone (Palpate): Relaxed (Magui Marlatt, RN) Monitor Mode: External US (Magui Marlatt, RN) FHR Baseline Rate : 130 (Magui Marlatt, RN) Variability: Moderate 6-25 bpm (Magui Marlatt, RN) Accelerations: 15X15 (Magui Marlatt, RN) Decelerations: None (Magui Marlatt, RN) Datetime: 05/17/2016 07:21 NBP Sys/Mari/Mean (mmHg): 123 (QS system process) : 85 (QS system process) : 99 (QS system process) Pulse: 103 (QS system process) LaborFlag: Antepartum (QS system process) Datetime: 05/17/2016 07:20 Level of Consciousness: Fully Conscious (Magui Cote, RN) DTR's/Clonus: DTRs 2+; No Clonus (Magui Cote, RN) Headache: Denies (Magui Cote, RN) Breath Sounds, Left: Clear and Equal (Magui Cote, RN) Breath Sounds, Right: Clear and Equal (Magui Cote, RN) Nausea/Vomiting: Denies (Magui Cote, RN) RUQ Epigastric Pain: Denies (Magui Cote, RN) Datetime: 05/17/2016 07:18 Dilatation (cm): 3.5 (Magui Cote, RN) Effacement (%): 50 (Magui Cote, RN) Station: -3 (Magui Cote, RN) Exam by: Dr. Zavala (Magui Cote, RN) Cervix, Position: Midposition (Magui Maredwin, RN) Datetime: 05/17/2016 07:13 Stage of : Antepartum (Kathleen Sebastian RN) Strip Reviewed by: Freddie Sebastian RN (Kathleen Sebastian RN) Communication: Report Given to @ Adri Cote RN _ Abdelrahman Nguyen RN. (Kathleen Sebastian RN) Notification Reason: Status Update; Status; Labor Status; Membrane Status; Uterine Activity; Pain (Kathleen Sebastian RN)
--- NOTE | 2016-05-18 06:01 | L&D Current Admission ---
Current Admit Datetime Report Generated by CPN: 05/18/2016 06:00 ADMISSION INFORMATION Current Admit Date/Time: 05/17/2016 06:37 (05/17/2016 06:19:Kathleen Sebastian RN) Reason for Admission: Induction of Labor (05/17/2016 06:19:Kathleen Sebastian RN) Chief Complaint: Scheduled Induction of Labor (05/17/2016 06:19:Kathleen Sebastian RN) Medications During : Vitamin (05/17/2016 06:19:Kathleen Sebastian RN) Meds During -Oth: vitamins (05/17/2016 06:19:Kathleen Sebastian RN) EGA per Dates: 40.4 (05/17/2016 06:19:QS system process) Method of Arrival: Ambulatory (05/17/2016 06:19:Kathleen Sebastian RN) Admitted From: Emergency Dept (05/17/2016 06:19:Kathleen Sebastian RN) Reason for Induction: Postterm (05/17/2016 06:19:Kathleen Sebastian RN) Records Available: Yes (05/17/2016 06:19:Kathleen Sebastian RN) General Admission Information: Reviewed (05/17/2016 06:19:Kathleen Sebastian RN) BELONGINGS/ADVANCED DIRECTIVES Valuables/Personal Effects: Purse/Wallet; Jewelry (05/17/2016 06:19:Kathleen Sebastian RN) Disposition of Belongings: Kept with Patient (05/17/2016 06:19:Kathleen Sebastian RN) Advance Direct for Healthcare: No, and Wants No Information (05/17/2016 06:19:Kathleen Sebastian RN) Durable Power of Bar Supervisor: No (05/17/2016 06:19:Kathleen Sebastian RN) Living Will: No (05/17/2016 06:19:Kathleen Sebastian RN) Organ Donor: Yes (05/17/2016 06:19:Kathleen Sebastian RN) Pt Rights Information Given: Yes (05/17/2016 06:19:Kathleen Sebastian RN) Pt Understands Pt Rights: Yes (05/17/2016 06:19:Kathleen Sebastian RN) LEARNING ASSESSMENT Knowledge Level: Understands L_D Process; Understands Care Activities; Had Pre-Hospital Education; Understands Diagnosis (05/17/2016 06:19:Kathleen Sebastian RN) Barriers to Learning: None (05/17/2016 06:19:Kathleen Sebastian RN) Learning Readiness: Motivated (05/17/2016 06:19:Kathleen Sebastian RN) Learns Best By: 1 to 1 Instruction (05/17/2016 06:19:Kathleen Sebastian RN) Learning Needs: Labor and Delivery Process; Pain Management; Symptoms to Report; Treatment Plan; Medication; Diagnosis; Nutrition; Equipment; Infant Care; Community Resources (05/17/2016 06:19:Kathleen Sebastian RN) DOMESTIC VIOLANCE SCREENING Dom Viol Threatened/Hurt: No (05/17/2016 06:19:Kathleen Sebastian RN) Hx of Abuse/Neglect past 2yrs: No (05/17/2016 06:19:Kathleen Sebastian RN) Feel Unsafe Going Home: No (05/17/2016 06:19:Kathleen Sebastian RN) Addt'l Observ Indicating Abuse: No (05/17/2016 06:19:Kathleen Sebastian RN) Reason Unable to Complete Screen: N/A, Screen Completed (05/17/2016 06:19:Kathleen Sebastian RN) Considered Personal Harm/Suicide: No (05/17/2016 06:19:Kathleen Sebastian RN) NUTRITIONAL/FUNCTIONAL SCREENING Problem with Appetite >5 Days: No (05/17/2016 06:19:Kathleen Sebastian RN) Chew/Swallow Difficulties: No (05/17/2016 06:19:Kathleen Sebastian RN) Inappropriate Wt Gain/Loss: No (05/17/2016 06:19:Kathleen Sebastian RN) Presence Skin Breakdown/Ulcer: No (05/17/2016 06:19:Kathleen Sebastian RN) Special Diet: No (05/17/2016 06:19:Kathleen Sebastian RN) Pt Requests Custom Applicator Visit: No (05/17/2016 06:19:Kathleen Sebastian RN) Hx of Any of the Following?: N/A (05/17/2016 06:19:Kathleen Sebastian RN) New Diagnosis of: N/A (05/17/2016 06:19:Kathleen Sebastian RN) Requires Assist w/Ambulation: No (05/17/2016 06:19:Kathleen Sebastian RN) Uses Assist Device to Ambulate: No (05/17/2016 06:19:Kathleen Sebastian RN) Pt Requires Help w/ADL's: No (05/17/2016 06:19:Kathleen Sebastian RN)
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
--- NOTE | 2016-05-18 06:15 | L&D Care Plan ---
LD CARE PLANS Datetime Report Generated by CPN: 05/18/2016 06:15 Datetime: 05/17/2016 06:24 Pain State: Risk For (Marii Cummins) Related To: Labor and Delivery Process; Surgical Procedure (Marii Cummins) Goal(s): Patients Pain will be Assessed and Managed; Patient will Verbalize Adequate Relief of Pain or the Ability to [place] with Current Pain (Marii Cummins) Interventions: Assess Pain Severity on Scale of 0 (None) to 5 (Severe); Assess Type, Location and Intensity of Pain Each Time Client Reports Discomfort and Notify Provider if Unusal Pain Develops; Encourage Proper Breathing and Relaxation Techniques; Offer Alternatives Such as Repositioning, Calm Environment, Massages, Diversional Activities, Ice Pack, Splinting, and Ambulation; Administer Analgesics as Ordered; Assist with Epidural Placement as Appropriate; Evaluate Therapeutic Effectiveness of Medication and Treatments (Marii Cummins) Outcome: Patient will Report Absence or Relief of Pain Consistent with Established Pain Goal (Marii Cummins) Status: Ongoing (Marii Cummins) Outcome: Patient will have a Decrease in Signs and Symptoms of Discomfort (Marii Cummins) Status: Ongoing (Marii Cummins) Outcome: Pain will be Controlled During Procedures (Marii Cummins) Status: Ongoing (Marii Cummins) Anxiety State: Risk For (Marii Cummins) Related To: Labor and Delivery Process (Marii Cummins) Goal(s): Patient will have Decreased Anxiety and be able to Function at Acceptable Levels (Marii Cummins) Interventions: Assess Verbal and Nonverbal Behavioral Indicators of Anxiety; Assist Patient to Identify and Verbalize Symptoms of Anxiety; Identify and Demonstrate Techniques to Control Anxiety; Assist Patient with Coping Mechanisms to Manage Anxiety; Provide Theraputic Touch for the Patient; Explain to Patient, Using a Calm Reassuring Approach and Nonmedical Terms, All Activities, Procedures, and Concerns; Instruct Patient and Family about Post Discharge Care, Limitations, Symptoms to Report and Resources Available (Marii Cummins) Outcome: Patient will Identify, Verbalize and Demonstrate Techniques to Control Anxiety (Marii Cummins) Status: Ongoing (Marii Cummins) Outcome: Patient's Posture, Facial Expressions, Gestures and Activity Level will Reflect Decreased Anxiety (Marii Cummins) Status: Ongoing (Marii Cummins) Outcome: Patient will Verbalize a Sense of Control and/or Acceptance of the Situation (Marii Cummins) Status: Ongoing (Marii Cummins) Outcome: Patient will Identify and Utilize Support Person (Marii Cummins) Status: Ongoing (Marii Cummins)
[2016-05-18] MEDS: IBUPROFEN 800 MG TABLET PO SCH ×3 (06:24→21:10)
[2016-05-18 07:53] LABS: HEMATOCRIT 28.9 % (36.0-47.0); HEMOGLOBIN 9.3 g/dL (12.0-15.5); MEAN CORPUSCULAR HEMOGLOBIN 23.5 pg (27.0-33.4); MEAN CORPUSCULAR HGB CONC 32.1 g/dL (32.0-36.0); MEAN CORPUSCULAR VOLUME 73 fl (80-97); RED BLOOD COUNT 3.95 10^6/uL (3.72-5.28); RED CELL DISTRIBUTION WIDTH 15.7 % (11.5-14.0)
--- NOTE | 2016-05-18 09:30 | PDOC PROGRESS REPORT ---
Subjective-OB Subjective: Post Delivery Day: 26 year old. Denies any needs at this time. States she stopped THC sometime ago so is surprised she popped positive on admit. Physical Exam (OB) Vital Signs: Temp Pulse Resp BP Pulse Ox 98.0 F 69 16 116/80 100 05/18/16 07:41 05/18/16 07:41 05/18/16 07:41 05/18/16 07:41 05/18/16 07:41 Intake & Output 05/17/16 05/18/16 05/19/16 06:59 06:59 06:59 Intake Total 460 Balance 460 Weight 91.3 kg - Lochia Lochia Amount: Small 10-25 ml Lochia Color: Rubra/Red - Abdomen Description: Soft, Round Hernia Present: No Bowel Sounds: Normoactive Flatus Presence: Present Stool: Yes Fundal Description: Firm, Midline Fundal Height: u/u - u/2 Objective-Diagnostic Laboratory: 05/18/16 07:29 05/18/16 07:29 WBC 10.0 RBC 3.95 Hgb 9.3 L Hct 28.9 L MCV 73 L MCH 23.5 L MCHC 32.1 RDW 15.7 H Plt Count 173
[2016-05-18] MEDS: SENNOSIDES/DOCUSATE 8.6-50 MG 1 EACH TABLET PO SCH (11:04)
[2016-05-18] MEDS: PRENATAL VITAMIN W-O CA NO5/FE FUMARATE/FA CAPSULE PO SCH (11:05)
[2016-05-18] MEDS: FERROUS SULFATE 325 MG TABLET PO SCH ×2 (11:05→17:50)
[2016-05-18] MEDS: DOCUSATE SODIUM 100 MG CAPSULE PO SCH ×2 (11:06→17:50)
[2016-05-19] MEDS: IBUPROFEN 800 MG TABLET PO SCH (06:27)
[2016-05-19 08:58] VITALS: BP 110/74
[2016-05-19] MEDS: FERROUS SULFATE 325 MG TABLET PO SCH (09:28)
[2016-05-19] MEDS: PRENATAL VITAMIN W-O CA NO5/FE FUMARATE/FA CAPSULE PO SCH (09:28)
[2016-05-19] MEDS: SENNOSIDES/DOCUSATE 8.6-50 MG 1 EACH TABLET PO SCH (09:28)
[2016-05-19] MEDS: DOCUSATE SODIUM 100 MG CAPSULE PO SCH (09:28)
--- NOTE | 2016-05-19 11:49 | PDOC DISCHARGE SUMMARY ---
Final Diagnosis Discharge Date: 05/19/16 - Final Diagnosis (1) Tetrahydrocannabinol (THC) use disorder, mild, abuse Is this a current diagnosis for this admission?: Yes (2) Delivery normal Is this a current diagnosis for this admission?: Yes Discharge Data - Discharge Medication Home Medications: Vit/Iron Fumarate/FA [ Tablet] 1 tab PO DAILY 04/14/16 Reason(s) for Admission: Induction of Labor Procedures: None Intrapartum Procedure(s): Spontaneous Vaginal Delivery - [place] Data Baby 1 Female at 1 minute: 9 at 5 minutes: 10 Weight: 3600 kg Home with Mother: Yes Complications: No - Diagnosis Test Laboratory: Temp Pulse Resp BP Pulse Ox 98.3 F 94 18 110/74 100 05/19/16 08:10 05/19/16 08:10 05/19/16 08:10 05/19/16 07:50 05/19/16 08:10 05/17/16 05/17/16 05/18/16 06:20 06:48 07:29 RBC 4.41 3.95 Hgb 10.5 L 9.3 L Hct 31.6 L 28.9 L Urine Opiates Screen NEGATIVE - Discharge information/Instructions Discharge Activity: Activity As Tolerated, No Lifting Over 10 Pounds, Pelvic Rest, No tub bath Discharge Diet: Regular Disposition: HOME, SELF-CARE Follow up with: [facility] in: 4
== END 2016-05-19 12:52 | disposition home or self-care (01) | DRG 774 ==
LOC: LR 06:09 → 2S 12:45
PROVIDERS: ADMIT Student in an Organized Health Care Education/Training Program; ATTEND Student in an Organized Health Care Education/Training Program
PROC: 10E0XZZ Delivery of Products of Conception, External Approach (ICD-10-PCS; principal; 2016-05-17)
PROC: 4A1HXCZ Monitoring of Products of Conception, Cardiac Rate, External Approach (ICD-10-PCS; 2016-05-17)
PROC: 3E033VJ Introduction of Other Hormone into Peripheral Vein, Percutaneous Approach (ICD-10-PCS; 2016-05-17)
DX: O48.0 Post-term pregnancy (principal); O98.42 Viral hepatitis complicating childbirth; O99.324 Drug use complicating childbirth; F12.90 Cannabis use, unspecified, uncomplicated; O70.0 First degree perineal laceration during delivery; O77.0 Labor and delivery complicated by meconium in amniotic fluid; O99.334 Smoking (tobacco) complicating childbirth; F17.210 Nicotine dependence, cigarettes, uncomplicated; O99.344 Other mental disorders complicating childbirth; F32.9 Major depressive disorder, single episode, unspecified; Z62.810 Personal history of physical and sexual abuse in childhood; B19.20 Unspecified viral hepatitis C without hepatic coma; O99.824 Streptococcus B carrier state complicating childbirth; Z3A.40 40 weeks gestation of pregnancy; Z37.0 Single live birth
CPT/HCPCS: 36415; 80307; 81005; 85025; 85027; 86592; 86850; 86900; 86901; 88307; 94760; G0480; J2540; J2590; J3490